=== PATIENT | female | born 1950 | race Caucasian/White ===

== ENCOUNTER → 2020-10-13 10:42 | Outpatient (CLI) | payer MEDICARE, SELFPAY ==
--- NOTE | ~2020-10-13 | XR_ITS ---
EXAMINATION: XR abdomen/kub 1V DATE: 10/13/2020 11:52 INDICATION: Constipation TECHNIQUE: A supine view of the abdomen on 2 radiographs was obtained. COMPARISON: None. FINDINGS: Moderate amount of stool scattered throughout the colon. No dilated loops of gas-filled bowel to sugg est obstruction. Mild lumbar levocurvature with moderate spondylosis. IMPRESSION: 1. Moderate amount of colonic stool consistent with given history of constipation. No dilated bowel t o suggest obstruction. Reviewed, dictated and finalized at location A. IMPRESSION: 1. Moderate amount of colonic stool consistent with given history of constipati on. No dilated bowel to suggest obstruction.
== END ==
PROVIDERS: Visit Provider Internal Medicine
DX: K59.00 Constipation, unspecified (principal)
CPT/HCPCS: 74018

== ENCOUNTER → 2021-04-15 12:49 | Outpatient (CLI) | payer MEDICARE, SELFPAY ==
--- NOTE | ~2021-04-15 | MM_ITS ---
EXAMINATION: MM screening [facility] BI w parviz HISTORY: Screening mammogram TECHNIQUE: Craniocaudal and mediolateral oblique 3-D tomosynthesis images were obtained and synthetic 2-D images were generated. CAD analysis was submitted and interpreted. COMPARISON: 12/09/2019, 09/30/2018, 06/12/2017, 04/04/2016 BREAST PARENCHYMAL COMPOSITION: The breasts are almost entirely fatty. FINDINGS: Focal asymmetry in the upper outer quadrant of the left breast is unchanged when compared t o prior examinations. Also noted is a stable mass in the middle third of the lower inner right breast . There is no evidence of suspicious mass, calcification, or architectural distortion to suggest kady gnancy in either breast. There has been no suspicious interval change. IMPRESSION: 1. No mammographic evidence of malignancy. 2. Recommend routine screening mammography in one year. BI-RADS Category 2: Benign finding(s). Reviewed, dictated and finalized at location A. D MILL SUPERVISOR
== END ==
DX: Z12.31 Encounter for screening mammogram for malignant neoplasm of breast (principal)
CPT/HCPCS: 77063; 77067

== ENCOUNTER → 2021-07-09 09:31 | Outpatient (CLI) | payer MEDICARE, SELFPAY ==
--- NOTE | ~2021-07-09 | XR_ITS ---
EXAMINATION: XR lumbar spine 2-3V DATE: 07/09/2021 10:28 INDICATION: Lumbar radiculopathy TECHNIQUE: Anteroposterior and lateral views of the lumbar spine, and cone-down lateral view of the l umbosacral junction were obtained. COMPARISON: None. FINDINGS: There are 2 mm of anterolisthesis of L3 on L4 and 3 mm of anterolisthesis of L4 on L5. The vertebral body heights are maintained. There is severe loss of intervertebral disc space height at L1 -2, L2-3, and L5-S1. There is no fracture. Moderate facet osteoarthritis is present in the lower lumb ar spine. Calcified atherosclerosis is noted. IMPRESSION: 1. Areas of severe lumbar spondylosis without acute findings. Reviewed, dictated and finalized at location B. OWER
== END ==
PROVIDERS: PCP Internal Medicine; Visit Provider Nurse Practitioner
DX: M47.27 Other spondylosis with radiculopathy, lumbosacral region (principal); I70.90 Unspecified atherosclerosis
CPT/HCPCS: 72100

== ENCOUNTER → 2021-07-19 12:38 | Outpatient (CLI) | payer MEDICARE, SELFPAY ==
--- NOTE | ~2021-07-19 | MR_ITS ---
EXAMINATION: MR lumbar spine wo con DATE: 07/19/2021 13:17 INDICATION: Low back pain. Lumbar radiculopathy. TECHNIQUE: Magnetic resonance imaging (MRI) of the lumbar spine was performed without intravenous con trast. Sequences included sagittal T2-weighted FSE, sagittal T2-weighted FS FSE, sagittal T1-weighted FSE, and axial T2-weighted FSE. COMPARISON: Lumbar spine radiographs 07/09/2021 FINDINGS: There is 9 degrees levocurvature of thoracolumbar spine. There is 3 mm anterolisthesis of L 2 on L3, L3 on L4, and L4 on L5. Vertebral body heights are normal. There is severely decreased disc height at L1-L2 and L5-S1 and mildly decreased disc height at L2-L3 and L3-L4. The distal spinal cord signal intensity is normal. The conus medullaris is at L1-L2. The following disc levels are specific ally discussed: L1-L2: The disc is bulging. There is mild right and moderate left facet joint osteoarthritis. There i s mild bilateral neural foraminal stenosis. There is mild central canal stenosis. L2-L3: The disc is bulging. There is severe bilateral facet joint osteoarthritis. There is mild bilat eral neural foraminal stenosis. There is no central canal stenosis. L3-L4: The disc does not extend beyond the endplate margin. There is severe bilateral facet joint ost eoarthritis. There is mild bilateral neural foraminal stenosis. There is no central canal stenosis. L4-L5: The disc does not extend beyond the endplate margin. There is severe bilateral facet joint ost eoarthritis. There is mild bilateral neural foraminal stenosis. There is no central canal stenosis. L5-S1: The disc is bulging and has an annular fissure. There is severe bilateral facet joint osteoart hritis. There is mild bilateral neural foraminal stenosis. There is mild central canal stenosis. IMPRESSION: 1. Severe lumbar spondylosis. Reviewed, dictated and finalized at location A.
== END ==
PROVIDERS: PCP Nurse Practitioner; Visit Provider Nurse Practitioner
DX: M47.26 Other spondylosis with radiculopathy, lumbar region (principal)
CPT/HCPCS: 72148

== ENCOUNTER 2022-01-21 10:29 | Observation (INO) | payer MEDICARE, SELFPAY ==
[2022-01-21] VITALS (14 sets, daily range): BP systolic 100–154; BP diastolic 48–102; PULSE 54–91; RESP 15–19; TEMP 36.3–37; O2SAT 92–99; BMI 32.7
--- NOTE | ~2022-01-21 | CT_ITS ---
EXAMINATION: CT abdomen pelvis w con DATE: 01/21/2022 12:44 INDICATION: Abdominal pain. TECHNIQUE: Computed tomography (CT) of the abdomen and pelvis was performed with 100 mL Omnipaque 350 intravenous contrast. Automated exposure control and iterative reconstruction technique were employe d. The dose-length product was 879.01 mGy-cm. COMPARISON: None. FINDINGS: The visualized portions of the lung bases demonstrate mild atelectasis. No pleural effusion . The heart size is normal. No pericardial effusion. The liver, gallbladder, spleen, pancreas, adrena l glands, and left kidney are normal. There is a 15 mm cyst in right kidney. The appendix is dilated to 10 mm with surrounding fat stranding, consistent with appendicitis. There are no pathologically en larged lymph nodes. There is no free intraperitoneal fluid. There is severe lumbar spondylosis. IMPRESSION: 1. Acute appendicitis. Reviewed, dictated and finalized at location A. IMPRESSION: 1. Acute appendicitis.
[2022-01-21 11:11] LABS: Basophils Absolute Auto 0.1 K/mm3 (0.0-0.1); Basophils Percent Auto 0.7 % (0.2-1.2); Eosinophils Absolute Auto 0.2 K/mm3 (0-0.3); Eosinophils Percent Auto 2.7 % (0-4.4); Hematocrit 45.4 % (37.0-47.0); Immature Granulocyte Absolute 0.02 K/mm3 (0.00-0.031); Immature Granulocyte Percent A 0.2 % (0-0.5); Lymphocytes Absolute Auto 1.84 K/mm3 (0.9-3.2); Lymphocytes Percent Auto 22.8 % (18.3-44.2); Mean Corpuscular Hemoglobin 31.4 pg (26-34); Mean Platelet Volume 11.7 fl (7.4-10.4); Monocytes Absolute Auto 0.8 K/mm3 (0.1-0.6); Neutrophils Absolute Auto 5.1 K/mm3 (1.3-6.7); Neutrophils Percent Auto 63.6 % (45.5-73.1); Platelet Count Result 226 k/mm3 (150-375); Red Blood Count 4.78 M/mm3 (4.2-5.4); Red Cell Distribution Width 12.6 % (11.5-14.5); White Blood Count 8.1 K/mm3 (4.5-10.0)
[2022-01-21 11:15] LABS: Appearance Urine Clear (Clear); Bilirubin Urine Negative (Negative); Color Urine Yellow (Yellow); Glucose Urine UA Negative (Negative); Ketones Urine Negative (Negative); Leukocyte Esterase Ur 1+ LEU/UL (Negative); Nitrate Urine Negative (Negative); Protein Urine Negative (Negative); Urobilinogen Urine 0.2 mg/dL (<2.0)
[2022-01-21 11:19] LABS: Add Urine Microscopic? YES; Blood Urine Trace-Intact (Negative)
[2022-01-21 11:20] LABS: Mucus Urine Rare /lpf; Squamous Epithelial Cell Urine Few /hpf (Few)
--- NOTE | 2022-01-21 11:29 | ED.ABDPAIN ---
HPI - Abdominal Pain General Chief Complaint: Abdominal Pain Stated Complaint: ABD PAIN X 3D Time Seen by Provider: 01/21/22 11:06 Source: patient Mode of arrival: ambulatory Limitations: no limitations History of Present Illness HPI narrative: 71 years old white female drove herself to the emergency room complaining of mid abdominal pain, across. This started 4 days ago, is getting better. She denies any fever, chills, nausea, vomiting, diarrhea, constipation, chest pain, shortness of breath or back pain or radiation of pain. Patient going to a trip and would like to know what caused her abdominal pain. Currently slight discomfort. History of hypertension, hyperlipidemia, does not smoke or drink or uses drugs. Related Data Home Medications Medication Instructions Recorded Confirmed aspirin 81 mg tablet,delayed 81 mg PO DAILY 03/10/19 08/15/21 release (Adult Low Dose Aspirin) estradiol 0.5 mg tablet 0.5 mg PO DAILY 03/10/19 08/15/21 solifenacin 10 mg tablet (Vesicare) 10 mg PO DAILY 03/10/19 08/15/21 melatonin 5 mg tablet mg PO 02/16/20 08/15/21 mirabegron 25 mg tablet,extended 25 mg PO DAILY 02/16/20 08/15/21 release 24 hr (Myrbetriq) psyllium husk 0.4 gram capsule 0.4 g PO DAILY 02/16/20 08/15/21 (Metamucil) sennosides 8.6 mg tablet (Senokot) 8.6 mg PO BID 02/16/20 08/15/21 cholecalciferol (vitamin D3) 125 125 mcg PO DAILY 07/16/20 08/15/21 mcg (5,000 unit) capsule magnesium 200 mg tablet 400 mg PO DAILY 01/30/21 08/15/21 Allergies Allergy/AdvReac Type Severity Reaction Status Date / Time No Known Allergies Allergy Verified 08/15/21 10:27 Review of Systems Review of Systems: All systems reviewed & are unremarkable except as noted in HPI and below PMFSH Past Medical History Medical History Constipation Obese Family History Family History Father Diabetes mellitus Social History Social History Smoking status: Never smoker Second hand tobacco smoke exposure: Yes Alcohol intake: current Drinks per week: 4 Alcohol use details: wine Substance use: never Substance use type: does not use Exam Narrative: General appearance: Well-developed, well-nourished Skin: Normal color Head: Normocephalic, nontraumatic Eyes: Clear conjunctiva ENT: Oropharynx normal, ears normal, nose normal Neck: Supple, nontender Chest and respiratory: Airway patent, no respiratory distress, no accessory muscle use Heart: Regular rate/rhythm Abdomen: Soft, nontender, no organomegaly, quiet bowel sounds Vascular: Normal peripheral pulses, normal capillary refill. Musculoskeletal: Normal range of motion, nontender back Neurologic: Alert and oriented ?3, [employer] is normal as tested, no gross motor deficit Course Vital Signs Vital signs: Vital Signs Temperature 37.0 C 01/21/22 10:45 Pulse Rate 62 01/21/22 10:45 Respiratory Rate 16 01/21/22 10:45 Blood Pressure 140/102 H 01/21/22 10:45 Pulse Oximetry 96 01/21/22 10:45 Temperature 37.0 C 01/21/22 10:45 Pulse Rate 62 01/21/22 10:45 Respiratory Rate 16 01/21/22 10:45 Blood Pressure 140/102 H 01/21/22 10:45 Pulse Oximetry 96 01/21/22 10:45 MDM - Abdominal Pain Differential Diagnosis Differential diagnosis: Likely abdominal pain, constipation and diverticulitis Lab Data Result diagrams: 01/21/22 10:59 01/21/22 10:59 Labs: Lab Results 01/21/22 01/21/22 01/21/22 Range/Units 10:59 10:59 10:59 WBC 8.1 (4.5-10.0) K/mm3 RBC 4.78 (4.2-5.4) M/mm3
[2022-01-21 11:52] LABS: Alanine Aminotransferase 46 U/L (6-35); Alkaline Phosphatase 52 U/L (38-126); Anion Gap 12 mmol/L (8-16); Aspartate Amino Transferase 41 U/L (14-36); Bilirubin,Total 0.7 mg/dL (0.2-1.3); Blood Urea Nitrogen 14 mg/dL (7-17); Calcium 8.8 mg/dL (8.4-10.2); Carbon Dioxide 26 mmol/L (22-30); Chloride 97 mmol/L (98-107); Estimated CRCL calculation 65 ml/min; Estimated Glomerular Filt Rate > 60; Glucose 128 mg/dL (65-110); Lipase 57 U/L (23-300); Potassium 3.3 mmol/L (3.4-5.0); Sodium 135 mmol/L (137-145)
--- NOTE | 2022-01-21 12:33 | PC.NURSE ---
Patient to radiology
[2022-01-21] MEDS: SODIUM CHLORIDE 0.9% IV 1,000 ML 999 ML IV CONT (12:43)
--- NOTE | 2022-01-21 14:19 | PC.NURSE ---
Per EDP Arnulfo, hold PO potassium at this time. Patient currently NPO
--- NOTE | 2022-01-21 14:36 | PM.IMHP ---
H&P: HPI History of Present Illness Date/Time: 01/21/22 14:36 Chief Complaint: RUQ abdominal pain Narrative: This is a 71-year-old women with a history of overactive bladder, hypertension, and hyperlipidemia, who presented to the ER with complaints of abdominal pain for 3 days. She reports a sudden onset of right upper quadrant abdominal pain around 7:00 p.m. Thursday night. She had associated nausea and chills, but no vomiting or fever. She had eaten a large meal earlier that day and thought she was constipated. She was able to sleep that night and woke up in the morning with the same pain present. She felt like it was a little better. The pain was in the right upper quadrant and radiated across her upper abdomen. She had a large BM that morning with no relief in her pain. Throughout the day, her pain seemed to improve even into the following day. She decided to come into the ER today for evaluation because she was unable to get into her primary care office. Labs showed a white blood cell count of 8000 and potassium 3.3. She takes 40 mg once of KCl daily due to issues with hypokalemia, and has not taken her medications yet this morning. CT scan of the abdomen and pelvis showed acute appendicitis, with no evidence of perforation. The patient is now seen in the ER. Our service has been contacted by the ED physician for surgical evaluation of acute appendicitis. Review of Systems Review of Systems: All systems reviewed & are unremarkable except as noted in HPI and below Constitutional: Constitutional: Reports as per HPI, Reports chills, Denies fatigue, Denies fever(s) and Denies poor appetite Eyes: Eyes: Reports no additional eye complaints ENT: Reports system reviewed and no additional complaints, except as documented and Denies dizziness Cardiovascular: Cardiovascular: Reports no additional cardiovascular complaints, Denies chest pain and Denies leg edema Respiratory: Respiratory: Reports no additional respiratory complaints, Denies cough and Denies dyspnea Gastrointestinal: Gastrointestinal: Reports as per HPI, Reports no additional gastrointestinal complaints, Reports abdominal pain, Denies melena, Denies hematochezia, Denies change in bowel habits, Denies change in stool character, Denies constipation, Reports nausea and Denies vomiting Genitourinary: Genitourinary: Reports no additional female genitourinary complaints, Reports nocturia (Chronic due to her overactive bladder) and Denies dysuria Musculoskeletal: Musculoskeletal: Reports no additional musculoskeletal complaints Integumentary/Breasts: Skin/Breast: Reports system reviewed and no additional complaints, except as docu Neurologic: Reports system reviewed and no additional complaints, except as documented, Denies dizziness, Denies focal weakness, Denies numbness and Denies tingling PMFSH Past Medical History Medical History Constipation Depression Essential hypertension History of gastric ulcer 2013 -found on EGD. Currently on PPI. Hyperlipidemia Iron deficiency Obese Overactive bladder Vitamin D deficiency, unspecified Surgical History Surgical History History of bladder surgery History of colonoscopy Most recent colonoscopy in 2018 with findings of internal hemorrhoids. History of esophagogastroduodenoscopy (EGD) History of hysterectomy Family History Family History Father Diabetes mellitus Social History Social History Smoking status: Never smoker Second hand tobacco smoke exposure: Yes Alcohol intake: current Drinks per week: 4 Alcohol use details: wine Substance use: never Substance use type: does not use Meds Home Medications and Allergies Home Medications Medication Instructions Cam
[2022-01-21 14:49] LABS: SARS-CoV-2 RNA PCR Negative
--- NOTE | 2022-01-21 15:22 | WPDANESEPPF ---
Anes - Initial Pre Proc Eval Procedure: Operation Date: 01/21/22 17:30 Proposed Procedures p Laparoscopic Appendectomy, Possible Open - Woody Garcia MD <Estevan Siddiqui MD - Last Filed: 01/22/22 15:53> Date/Time: 01/21/22 15:22 <Estevan Siddiqui MD - Last Filed: 01/22/22 15:53> Pre Op Diagnosis: acute appendicites <Estevan Siddiqui MD - Last Filed: 01/22/22 15:53> Patient Data Age: 71 Gender: F Height: 1.63 m Weight: 85 kg <Estevan Siddiqui MD - Last Filed: 01/22/22 15:53> Last Vital Signs Temp 36.5 C 01/21/22 13:41 Pulse 67 01/21/22 14:58 Resp 16 01/21/22 14:58 BP 137/65 01/21/22 14:58 Pulse Ox 99 01/21/22 14:58 <Estevan Siddiqui MD - Last Filed: 01/22/22 15:53> Allergies Allergy/AdvReac Type Severity Reaction Status Date / Time No Known Allergies Allergy Verified 08/15/21 10:27 <Estevan Siddiqui MD - Last Filed: 01/22/22 15:53> Home Medications Medication Instructions Recorded Confirmed Type aspirin 81 mg tablet,delayed 81 mg PO DAILY 03/10/19 01/21/22 History release (Adult Low Dose Aspirin) estradiol 0.5 mg tablet 0.5 mg PO DAILY 03/10/19 01/21/22 History solifenacin 10 mg tablet (Vesicare) 10 mg PO DAILY 03/10/19 01/21/22 History melatonin 5 mg tablet 5 mg PO HS 02/16/20 01/21/22 History mirabegron 25 mg tablet,extended 25 mg PO DAILY 02/16/20 01/21/22 History release 24 hr (Myrbetriq) psyllium husk 0.4 gram capsule 0.4 g PO DAILY 02/16/20 01/21/22 History (Metamucil) sennosides 8.6 mg tablet (Senokot) 8.6 mg PO BID 02/16/20 01/21/22 History cholecalciferol (vitamin D3) 125 125 mcg PO DAILY 07/16/20 01/21/22 History mcg (5,000 unit) capsule magnesium 200 mg tablet 400 mg PO DAILY 01/30/21 01/21/22 History pantoprazole 40 mg tablet,delayed 40 mg PO QAM #90 tabs 07/29/21 01/21/22 Rx release escitalopram oxalate 10 mg tablet 10 mg PO DAILY #90 tabs 08/19/21 01/21/22 Rx (Lexapro) potassium chloride 10 mEq 10 meq PO QID #360 tabs 11/14/21 01/21/22 Rx tablet,extended release atorvastatin 10 mg tablet 10 mg PO DAILY #90 tabs 11/15/21 01/21/22 Rx atenolol 50 mg-chlorthalidone 25 1 tablet PO DAILY 01/21/22 01/21/22 History mg tablet docusate sodium 50 mg capsule 50 mg PO DAILY 01/21/22 01/21/22 History (Stool Softener) lisinopril 5 mg tablet 5 mg PO DAILY 01/21/22 01/21/22 History hydrocodone 5 mg-acetaminophen 325 1 tablet PO Q6H PRN pain #10 tabs 01/22/22 Rx mg tablet <Estevan Siddiqui MD - Last Filed: 01/22/22 15:53> Laboratory Tests 01/21/22 01/21/22 01/21/22 10:59 10:59 11:34 WBC 8.1 K/mm3 K/mm3 (4.5-10.0) RBC 4.78 M/mm3 M/mm3 (4.2-5.4) Hgb 15.0 g/dL g/dL (12.0-15.0) Hct 45.4 % % (37.0-47.0) MCV 95.0 fl fl (80-100) MCH 31.4 pg pg (26-34) MCHC 33.0 g/dl g/dl (32-36) RDW 12.6 % % (11.5-14.5) Plt Count 226 k/mm3 k/mm3 (150-375) MPV 11.7 fl H fl (7.4-10.4) Immature Gran % (Auto) 0.2 % % (0-0.5) Neut % (Auto) 63.6 % % (45.5-73.1) Lymph % (Auto) 22.8 % % (18.3-44.2) Wirt % (Auto) 10.0 % H % (2.6-8.5) Eos % (Auto) 2.7 % % (0-4.4) Baso % (Auto) 0.7 % % (0.2-1.2) Lymph # (Auto) 1.84 K/mm3 K/mm3 (0.9-3.2) Wirt # (Auto) 0.8 K/mm3 H K/mm3 (0.1-0.6) Eos # (Auto) 0.2 K/mm3 K/mm3 (0-0.3) Baso # (Auto) 0.1 K/mm3 K/mm3 (0.0-0.1) Abs Immat Gran (auto) 0.02 K/mm3 K/mm3 (0.00-0.031) Absolute Neuts (auto) 5.1 K/mm3 K/mm3 (1.3-6.7) Absolute Nucleated RBC 0.0 K/mm3 K/mm3 (0.0-0.012) Nucleated RBC % 0.0 % % (0.0-0.2) Sodium 135 mmol/L L mmol/L (137-145) Potassium 3.3 mmol/L L mmol/L (3.4-5.0) Chloride 97 mmol/L L mmol/L (98-107) Carbon Dioxide 26 mmol/L mmol/L (22-30) Ani
[2022-01-21] MEDS: KCL 20 MEQ/SW 100 ML 100 ML 50 MEQ IVPB (15:27)
[2022-01-21] MEDS: SODIUM CHLORIDE 0.9% IV 1,000 ML 250 ML (16:18)
--- NOTE | 2022-01-21 16:18 | PC.NURSE ---
Patient reports pain at IV site with potassium. Potassium infusion slowed, IV fluids hung with potassium per ROBY Arredondo.
--- NOTE | 2022-01-21 17:10 | SUR.PREOP ---
1710 - Dr. Mace aware of Patient not taking her home dose of atenolol today. no orders received. Dr. Mace aware of patient being on steriod medication 2 weeks age. no orders received.
--- NOTE | 2022-01-21 17:27 | WPDHPUPDATE1 ---
History and Physical Update Update Date/Time: 01/21/22 17:27 History and Physical has been reviewed, including an updated exam of the patient. There are NO changes in the patient's condition. Patient did tell me that she had recently been on as steroid taper dose that she finished 2 weeks ago. This was for pain in her lower back extending into the right leg. Risks, benefits, and alternatives have been discussed and questions answered. Patient agrees to proceed with procedure.
--- NOTE | 2022-01-21 17:49 | SUR.PREOP ---
ABDOMEN CLEANED WITH CHLORHEXIDINE WIPES X 2. SCD WRAPS APPLIED TO BOTH LEGS.
[2022-01-21] MEDS: CHLORHEXIDINE GLUCONATE 4% SOL 120 ML BTL 1 APPLIC TOPICAL (17:50)
[2022-01-21] MEDS: LACTATED RINGERS 1,000 ML 30 ML IV CONT ×2 (18:33→20:27)
--- NOTE | 2022-01-21 18:34 | SUR.PREOP ---
PATIENT TRANSPORTED TO THE OR.
[2022-01-21] MEDS: BUPIVACAINE/EPINEPHRINE 0.25% 50 ML VIAL 30 ML INFILTRATE (20:10)
[2022-01-21] MEDS: ONDANSETRON INJ 4 MG/2 ML VIAL IV PUSH (20:58)
--- NOTE | 2022-01-21 21:05 | W.PM.PROC2 ---
Procedure Note - Detailed Date of Procedure 01/21/22 Pre-op Diagnosis acute uncomplicated appendicitis Post-op Diagnosis Same Procedure Performed laparoscopic appendectomy Surgeon Woody Garcia MD Aircraft P[employer] Repairer Barbara LIM. OR 1st assist Anesthesia General Indications See history and physical Patient has signs and symptoms of appendicitis and a CT scan showing a dilated appendix with surrounding fat stranding. To my reading CT also suggested possible small appendicoliths. Findings Patient had a significantly dilated distal 2/3 of her appendix with no signs of perforation. Description of Procedure The patient was seen again in the Holding Room. The risks, benefits, complications, treatment options, and expected outcomes were discussed with the patient and/or family. The possibilities of reaction to medication, pulmonary aspiration, perforation of viscus, bleeding, recurrent infection, finding a normal appendix, the need for additional procedures, failure to diagnose a condition, and creating a complication requiring transfusion or operation were discussed. There was concurrence with the proposed plan and informed consent was obtained. The site of surgery was properly noted/marked. The patient was taken to Operating Room, and a time out was preformed which identified this as the proper patient, and the procedure verified as laparoscopic appendectomy, possible open. The patient was placed in the supine position and general anesthesia was induced, along with placement of an orogastric tube, SCD hose, and a Lamb catheter. The abdomen was prepped and draped in a sterile fashion. Because the patient had had previous surgeries the Cormier cannula technique was utilized. To do this I made a incision in the umbilical area and carried this down to the midline fascia. Under direct vision the midline fascia was incised and the peritoneum entered under direct vision after placing 2 sutures of 0 Vicryl in the fascia on either side of midline. The Cormier cannula was then slid into place into the peritoneum under direct vision. The pneumoperitoneum was then established to steady pressure of 14 mm Hg. A 5 mm laparoscopic port was placed through a transverse suprapubic incision (probably a good 5-6 cm above the pubic bone. An additional 5 mm cannula was then placed in the left upper quadrant at the level skilled nursing between the left costal margin and the umbilicus under direct vision. A careful evaluation of the entire abdomen was carried out. The patient was placed in Trendelenburg and left lateral decubitus position. The small intestines were retracted in the cephalad and left lateral direction away from the pelvis and right lower quadrant. The patient was found to have an enlarged and inflamed appendix that was extending just into the upper right side of the pelvis . It was best seen by just rotating the most inferior and the cecum medially. There was no evidence of perforation. The appendix was carefully dissected. Once it was free a 45 mm ethicon endogastroentestinal stapler with a 3.5 mm bowel wall load was placed across the base of the appendix after I dissected a small window in the mesoappendix right at the junction of the appendix to the cecum. This was fired and hemostasis was checked along the staple line and appeared to be adequate. Thus the appendix was then divided at its base, and this allowed me to rotate the appendix medially such that the stapler could then more easily be placed across the mesoappendix. A white load for the blood vessels was placed on the same 45 mm stapler with a 2.5 mm vascular load. The mesoappendix was very thickened so I used Bovie cautery on the L hook to score the peritoneum on either side of it. Then the stapler fit across all except for about 0.5 cm near the tip. The stapler was again fired and released. I then used scissors to attached the Bovie cautery to transect the remaining mesoappendix. There was a little bit of bleedi
[2022-01-21 21:25] LABS: Hemoglobin 14.5 g/dL (12.0-15.0)
[2022-01-21] MEDS: diphenhydrAMINE HCl INJ 50 MG/ML VIAL 12.5 MG IV PUSH (21:29)
[2022-01-21] MEDS: fentaNYL CITRATE INJ (*CRX) 100 MCG/2 ML VIAL 25 MCG IV PUSH (21:29)
[2022-01-21 21:39] LABS: Anion Gap 13 mmol/L (8-16); Blood Urea Nitrogen 12 mg/dL (7-17); Calcium 8.3 mg/dL (8.4-10.2); Carbon Dioxide 21 mmol/L (22-30); Chloride 101 mmol/L (98-107); Estimated CRCL calculation 75 ml/min; Estimated Glomerular Filt Rate > 60; Glucose 140 mg/dL (65-110); Potassium 3.4 mmol/L (3.4-5.0); Sodium 135 mmol/L (137-145)
[2022-01-21] MEDS: MELATONIN 5 MG TABLET PO (23:13)
[2022-01-22 04:11] VITALS: BP 112/78; PULSE 64; RESP 16; TEMP 36.4; O2SAT 94
[2022-01-22 05:55] LABS: Hematocrit 39.9 % (37.0-47.0); Hemoglobin 13.2 g/dL (12.0-15.0); Mean Corpuscular HGB Conc 33.1 g/dl (32-36); Mean Corpuscular Hemoglobin 31.5 pg (26-34); Mean Corpuscular Volume 95.2 fl (80-100); Mean Platelet Volume 11.5 fl (7.4-10.4); Platelet Count Result 172 k/mm3 (150-375); Red Blood Count 4.19 M/mm3 (4.2-5.4); Red Cell Distribution Width 12.3 % (11.5-14.5); White Blood Count 7.7 K/mm3 (4.5-10.0)
[2022-01-22 06:10] LABS: Anion Gap 11 mmol/L (8-16); Blood Urea Nitrogen 9 mg/dL (7-17); Calcium 8.2 mg/dL (8.4-10.2); Carbon Dioxide 26 mmol/L (22-30); Chloride 102 mmol/L (98-107); Estimated CRCL calculation 66 ml/min; Estimated Glomerular Filt Rate > 60; Glucose 139 mg/dL (65-110); Potassium 3.4 mmol/L (3.4-5.0); Sodium 139 mmol/L (137-145)
[2022-01-22] MEDS: POTASSIUM CHLORIDE 10 MEQ TABLET.ER PO (09:37)
[2022-01-22] MEDS: ASPIRIN 81 MG ENTERIC TABLET PO (09:38)
[2022-01-22] MEDS: ENOXAPARIN 40 MG/0.4 ML SYRINGE SUB-Q (09:39)
[2022-01-22] MEDS: CHLORTHALIDONE 25 MG TABLET PO (09:39)
[2022-01-22] MEDS: DOCUSATE SODIUM LIQ 100 MG/10 ML UDC 50 MG PO (09:39)
[2022-01-22] MEDS: estradioL 0.5 MG TABLET PO (09:40)
[2022-01-22] MEDS: MIRABEGRON 25 MG ER TABLET PO (09:40)
[2022-01-22] MEDS: PANTOPRAZOLE 40 MG TABLET PO (09:40)
[2022-01-22] MEDS: lisinopriL 5 MG TABLET PO (09:40)
[2022-01-22 09:41] VITALS: PULSE 56
[2022-01-22] MEDS: SOLIFENACIN 5 MG TABLET 10 MG PO (09:41)
[2022-01-22] MEDS: atenoloL 50 MG TABLET PO (09:41)
[2022-01-22] MEDS: SENNOSIDES 8.6 MG TABLET PO (09:41)
[2022-01-22] MEDS: SODIUM CHLORIDE 0.9% IV 1,000 ML 100 ML IV CONT (09:55)
[2022-01-22 11:27] VITALS: PULSE 55; RESP 16; TEMP 36.1; O2SAT 99
[2022-01-22] MEDS: ACETAMINOPHEN 500 MG TABLET 1000 MG PO (13:07)
--- NOTE | 2022-01-22 15:20 | PM.DS ---
DS: Admitting Diagnosis Discharge Date 01/22/2022 Admitting Diagnosis acute uncomplicated appendicitis DS: Discharge Diagnosis Discharge Diagnosis (1) Acute appendicitis: Code(s): K35.80 - Unspecified acute appendicitis Status: Acute Assessment and Plan: This was the main reason for her admission. She was seen by my nurse practitioner Leticia in the ED after the CT scan that showed significant inflammatory change around her appendix without perforation. She was given the option of antibiotic treatment with observation versus appendectomy surgically. She has decided that she would like to proceed with surgical intervention. This was done in an expeditious manner and the patient was able to have a laparoscopic appendectomy. This seemed to go well and the patient was kept overnight in view of her other comorbidities and the fact that she did not have anybody to take her home along with question of possible urinary tract infection. ( 10-15 lb sees per high-power field on ER UA). (Also her surgery did not get over until 9:00 p.m. or so. ) (2) Hypokalemia: Code(s): E87.6 - Hypokalemia Status: Acute Assessment and Plan: Patient was mildly hypokalemic with a potassium of 3.2 in the ED. She received 1 rider prior to surgery while she was waiting for a time to proceed to surgery. Follow up after surgery showed a potassium of 3.4 both the evening of and the morning following her surgery. She is already on potassium and will resume this at home. Follow-up with PCP is recommended. (3) Essential hypertension: Code(s): I10 - Essential (primary) hypertension Status: Chronic Assessment and Plan: patient was continued on her normal medications on the day following surgery as she continued to recover. Blood pressure readings were within reasonable level. She will resume normal medications at home and resume usual home monitoring with office follow-up. (4) Overactive bladder: Code(s): N32.81 - Overactive bladder Status: Chronic Assessment and Plan: Patient had a voiding trial upon removal of the Lamb catheter on the day following surgery. Bladder scan after a void revealed minimal residual of 4 cc. (5) Obese: Code(s): E66.9 - Obesity, unspecified Status: Acute Assessment and Plan: Encouraged patient to adjust to a healthy eating habits and try to lose some weight. Follow-up with PCP with further discussions regarding how this may help many of her chronic illnesses. DS: Summary Hospital Course Reason for hospitalization: Acute uncomplicated appendicitis. Hospital Course: abdominal pain which was discovered to be secondary to acute uncomplicated appendicitis was main reason for her admission. She was seen by my nurse practitioner Leticia in the ED after the CT scan that showed significant inflammatory change around her appendix without perforation. She was given the option of antibiotic treatment with observation versus appendectomy surgically. She has decided that she would like to proceed with surgical intervention. This was done in an expeditious manner and the patient was able to have a laparoscopic appendectomy. This seemed to go well and the patient was kept overnight in view of her other comorbidities and the fact that she did not have anybody to take her home along with question of possible urinary tract infection. Status at Discharge Cognitive/behavioral status at discharge: recovered and stable Functional status at discharge: independent ambulation Overall status at discharge: patient is not back to baseline Time Spent with Patient Time attestation: Total time spent providing and/or coordinating discharge services: 30 min Time spent: Less than 30 minutes Exam Const: General: cooperative, comfortable, alert and awake Orientation/consciousness: patient oriented x3 HENMT: Head: normal to inspection Mouth: Yes moist muc
== END 2022-01-22 16:15 | disposition home or self-care (01) ==
LOC: ANHED 16:01 → ANH3MEDSUR 16:08 → ANH3MED 16:49
PROVIDERS: Admitting Provider Surgery; Emergency Provider Emergency Medicine; PCP Nurse Practitioner; Visit Provider Surgery
PROC: 0DTJ4ZZ Resection of Appendix, Percutaneous Endoscopic Approach (ICD-10-PCS; CPT 44970; principal; 2022-01-21 17:30)
DX: K35.80 Unspecified acute appendicitis (principal); E87.6 Hypokalemia; I10 Essential (primary) hypertension; N32.81 Overactive bladder; E66.9 Obesity, unspecified; Z68.32 Body mass index [BMI] 32.0-32.9, adult; E78.5 Hyperlipidemia, unspecified; F32.A Depression, unspecified; E87.5 Hyperkalemia; E55.9 Vitamin D deficiency, unspecified; E61.1 Iron deficiency; Z77.22 Contact with and (suspected) exposure to environmental tobacco smoke (acute) (chronic); Z72.89 Other problems related to lifestyle; Z20.822 Contact with and (suspected) exposure to COVID-19; Z87.11 Personal history of peptic ulcer disease; Z79.82 Long term (current) use of aspirin; Z79.890 Hormone replacement therapy; Z79.899 Other long term (current) drug therapy
CPT/HCPCS: 44970; 36415; 74177; 80048; 80053; 81001; 83690; 85014; 85018; 85025; 85027; 87086; 88304; 96361; 96365; 96366; 96367; 99285; A9270; C9803; G0378; J0330; J1100; J1200; J1650; J2405; J2543; J2704; J3010; J3480; J7030; J7120; Q9967; U0003; U0005

== ENCOUNTER 2022-07-13 10:46 | Emergency (ER) | payer MEDICARE, SELFPAY ==
--- NOTE | ~2022-07-13 | XR_ITS ---
EXAMINATION: XR hip RT 2V w AP pelvis DATE: 07/13/2022 12:13 INDICATION: Right buttock pain post fall TECHNIQUE: Anteroposterior view of the pelvis and anteroposterior and frog-leg lateral views of the r ight hip were obtained. COMPARISON: CT abdomen and pelvis dated 01/21/2022 FINDINGS: Bone alignment is normal. No fracture. Mild bilateral hip and sacroiliac osteoarthritis. Severe spond ylosis at L5-S1 and severe bilateral facet osteoarthritis at L4-L5. Soft tissues are unremarkable. IMPRESSION: Degenerative skeletal changes, severe in the lower lumbar spine and mild in the pelvis. No acute osse ous abnormality. Reviewed, dictated and finalized at location A. IMPRESSION: Degenerative skeletal changes, severe in the lower lumbar spine and mild in the pelvis. No acute osseous abnormality.
--- NOTE | ~2022-07-13 | CT_ITS ---
EXAMINATION: CT brain wo con, CT facial bones wo con DATE: 07/13/2022 12:10 INDICATION: Fall with head and facial injury TECHNIQUE: 1. Computed tomography (CT) of the head was performed without intravenous contrast. Sagittal and nhi nal reconstructions were obtained. The mA was adjusted according to patient size. Iterative reconstru ction technique was employed. The dose-length product was 605.33 mGy-cm. 2. CT of the facial bones and maxillofacial region was performed without intravenous contrast. Sagitt al and coronal reconstructions were obtained. Automated exposure control and iterative reconstruction technique were employed. The dose-length product was 288.72 mGy-cm. COMPARISON: None. FINDINGS: Head CT: No calvarial fracture. No acute intracranial hemorrhage, acute infarction or abnormal extra axial flu id collection. There is mild scattered white matter hypoattenuation consistent with chronic small ves sj ischemic disease. Symmetric prominence of the sulci consistent with mild age-appropriate diffuse cerebral volume loss. Ventricles are normal and symmetric. No mass/mass effect. Maxillofacial CT: No maxillofacial fractures. Specifically the nasal bones, the ramirez of the orbits and paranasal sinus es, the zygomatic arches, mandible and pterygoid plates are all intact. Orbits are normal. Mild mucos al thickening at the inferior right maxillary sinus. Remainder of the paranasal sinuses are clear. Ma stoid air cells and middle ear cavities are clear. There is metallic streak artifact from multiple de ntal restorations which partially obscures approximately 2.0 x 1.3 cm lipoma overlying the right mass eter muscle. Maxillofacial soft tissues are otherwise unremarkable. Small amount of atherosclerotic c alcific a cyst at the bilateral carotid bulbs. One-2 mm anterolisthesis C3 on C4, 3 mm anterolisthesi s C4 on C5. Severe spondylosis in the lower cervical spine. IMPRESSION: 1. No calvarial or maxillofacial fractures. 2. Age-related changes including mild diffuse volume loss and mild scattered white matter hypoattenua tion. No acute intracranial process. Reviewed, dictated and finalized at location A. IMPRESSION: 1. No calvarial or maxillofacial fractures. 2. Age-related changes including mild diffuse volume loss and mild scattered wh ite matter hypoattenuation. No acute intracranial process.
[2022-07-13 11:06] VITALS: BP 130/59; PULSE 60; RESP 16; TEMP 36.4; O2SAT 98
--- NOTE | 2022-07-13 12:11 | ED.FALL ---
HPI - Fall General Chief Complaint: Fall Stated Complaint: fall-head injury Time Seen by Provider: 07/13/22 11:19 Source: patient Mode of arrival: ambulatory Limitations: no limitations History of Present Illness HPI Narrative: 72-year-old female presents today for concern Of Fall Yesterday. Patient States She Was Walking Out Of the Restaurant to Her Car When She Slipped and Fell. Patient Not Sure Exactly How She Landed but She Does Have Bruising to the Right to the Right Buttock. Patient Has Been Ambulatory at Home. Patient Does Endorse pain to the right frontal lobe. Patient alert oriented x3 steady. She is currently only on a baby aspirin with relation to anticoagulant. Related Data Home Medications Medication Instructions Recorded Confirmed aspirin 81 mg tablet,delayed 81 mg PO DAILY 03/10/19 02/20/22 release (Adult Low Dose Aspirin) estradiol 0.5 mg tablet 0.5 mg PO DAILY 03/10/19 02/20/22 solifenacin 10 mg tablet (Vesicare) 10 mg PO DAILY 03/10/19 02/20/22 melatonin 5 mg tablet 5 mg PO HS 02/16/20 02/20/22 mirabegron 25 mg tablet,extended 25 mg PO DAILY 02/16/20 02/20/22 release 24 hr (Myrbetriq) psyllium husk 0.4 gram capsule 0.4 g PO DAILY 02/16/20 02/20/22 (Metamucil) sennosides 8.6 mg tablet (Senokot) 8.6 mg PO BID 02/16/20 02/20/22 cholecalciferol (vitamin D3) 125 125 mcg PO DAILY 07/16/20 02/20/22 mcg (5,000 unit) capsule magnesium 200 mg tablet 400 mg PO DAILY 01/30/21 02/20/22 docusate sodium 50 mg capsule 50 mg PO DAILY 01/21/22 02/20/22 (Stool Softener) Allergies Allergy/AdvReac Type Severity Reaction Status Date / Time No Known Allergies Allergy Verified 07/13/22 11:05 Review of Systems Review of Systems: CONSTITUTIONAL: Denies fever, chills, or sweats. EYES: Denies visual changes, redness, or discharge. ENT: Bruising to right eye. Tenderness to right forehead. Denies rhinorrhea, congestion, sore throat, or otalgia. CARDIOVASCULAR: Denies chest pain, palpitations, or edema. RESPIRATORY: Denies cough or dyspnea. GASTROINTESTINAL: Denies abdominal pain, nausea, vomiting, or diarrhea. GENITOURINARY: Denies dysuria or hematuria. SKIN: Denies rash or itching. MUSCULOSKELETAL: Right buttock/hip pain. Denies back pain or myalgia. NEUROLOGIC: Denies headache, numbness, dizziness, or weakness. PSYCHIATRIC: Denies anxiety or depression. [facility] Past Medical History Medical History Constipation Depression Essential hypertension History of gastric ulcer 2014 -found on EGD. Currently on PPI. Hyperlipidemia Iron deficiency Obese Overactive bladder Vitamin D deficiency, unspecified Surgical History Surgical History History of bladder surgery History of colonoscopy Most recent colonoscopy in 2018 with findings of internal hemorrhoids. History of esophagogastroduodenoscopy (EGD) History of hysterectomy Family History Family History Father Diabetes mellitus Social History Social History Smoking status: Never smoker Second hand tobacco smoke exposure: Yes Alcohol intake: current Drinks per week: 4 Alcohol use details: wine Substance use: never Substance use type: does not use Exam Narrative: GENERAL: Well-appearing, well-nourished, and in no acute distress. HEAD: Normocephalic, left as the right eye without swelling. Tenderness on palpation EYES: PERRLA and EOMI. ENT: Nares clear, no rhinorrhea or epistaxis. Mucous membranes moist. Oropharynx without tonsillar hypertrophy exudate or other lesions. Bilateral TMs pearly sierra nonbulging NECK: Supple. No adenopathy or masses. No carotid bruits or JVD CHEST: Clear to auscultation. No respiratory distress. No wheezes rales or rhonchi HEART: Regular rate and rhythm. No murmur heard. Normal periphera
[2022-07-13 13:40] VITALS: BP 140/78; PULSE 70; RESP 16; O2SAT 95
== END 2022-07-13 13:40 | disposition home or self-care (01) ==
PROVIDERS: Emergency Provider Nurse Practitioner Family; PCP Nurse Practitioner
DX: S09.90XA Unspecified injury of head, initial encounter (principal); M25.551 Pain in right hip; I10 Essential (primary) hypertension; E78.5 Hyperlipidemia, unspecified; Z79.82 Long term (current) use of aspirin; W01.0XXA Fall on same level from slipping, tripping and stumbling without subsequent striking against object, initial encounter; Y92.511 Restaurant or cafe as the place of occurrence of the external cause
CPT/HCPCS: 70450; 70486; 73502; 99283

== ENCOUNTER → 2023-06-23 14:42 | Outpatient (CLI) | payer MEDICARE, SELFPAY ==
--- NOTE | ~2023-06-23 | MM_ITS ---
EXAMINATION: MM screening chano BI w parviz HISTORY: Screening TECHNIQUE: Craniocaudal and mediolateral oblique 3-D tomosynthesis images were obtained and synthetic 2-D images were generated. CAD analysis was submitted and interpreted. COMPARISON: Comparison to multiple prior studies sequentially, with oldest reviewed study dated 06/2015. BREAST PARENCHYMAL COMPOSITION: Not dense: There are scattered areas of fibroglandular density. FINDINGS: There is no evidence of suspicious mass, calcification, or architectural distortion to sugg est malignancy in either breast. There has been no suspicious interval change. IMPRESSION: 1. No mammographic evidence of malignancy. 2. Recommend routine screening mammography in one year. BI-RADS Category 2: Benign finding(s). Reviewed, dictated and finalized at location A. OPERATOR
== END ==
PROVIDERS: PCP Nurse Practitioner; Visit Provider Nurse Practitioner
DX: Z12.31 Encounter for screening mammogram for malignant neoplasm of breast (principal)
CPT/HCPCS: 77063; 77067

== ENCOUNTER 2023-10-10 10:03 | Emergency (ER) | payer MEDICARE, SELFPAY ==
--- NOTE | ~2023-10-10 | XR_ITS ---
XR toe 5th LT min 2V DATE: 10/10/2023 10:34 INDICATION: Stubbed fifth left toe. Pain at the base of the toe. TECHNIQUE: 4 views of the left fifth toe COMPARISON: None FINDINGS: Incidentally noted is prominent osteoarthritic change at the first metatarsophalangeal join t. No fracture or dislocation of the left fifth toe. IMPRESSION: No fracture or dislocation of the left fifth toe Reviewed, dictated and finalized at location A.
--- NOTE | 2023-10-10 10:06 | ED.LOWEXIN ---
HPI - Extremity Injury (Lower) General Chief Complaint: Extremity Injury, Lower Stated Complaint: stubbed left toe Time Seen by Provider: 10/10/23 10:05 Source: patient Mode of arrival: ambulatory Limitations: no limitations History of Present Illness HPI Narrative: Obdulio is a 73-year-old female patient presenting to the clinic today with complaints of left 5th toe pain. She reports she stubbed her toe yesterday. Was trying to get into the counselling psychologist to have an x-ray done and was unsuccessful. She came here today ache as she is wanting to know if for toe is broken. States she is going on a trip this week to [place]. Related Data Home Medications Medication Instructions Recorded Confirmed aspirin 81 mg tablet,delayed 81 mg PO DAILY 03/10/19 10/10/23 release (Adult Low Dose Aspirin) estradiol 0.5 mg tablet 0.5 mg PO DAILY 03/10/19 10/10/23 melatonin 5 mg tablet 5 mg PO HS 02/16/20 10/10/23 psyllium husk 0.4 gram capsule 0.4 g PO DAILY 02/16/20 10/10/23 (Metamucil) cholecalciferol (vitamin D3) 125 125 mcg PO DAILY 07/16/20 10/10/23 mcg (5,000 unit) capsule magnesium 200 mg tablet 400 mg PO DAILY 01/30/21 10/10/23 Allergies Allergy/AdvReac Type Severity Reaction Status Date / Time No Known Allergies Allergy Verified 10/10/23 10:13 Review of Systems Review of Systems: Pertinent positives per HPI. Patient denies any fever, chills, rash, headache, visual changes, dizziness, cough, runny nose, sore throat, shortness of breath, chest pain, palpitations, nausea, vomiting, diarrhea, constipation, abdominal pain, or any urinary issues. [facility] Past Medical History Medical History Constipation Depression Essential hypertension History of gastric ulcer 2013 -found on EGD. Currently on PPI. Hyperlipidemia Iron deficiency Obese Overactive bladder Vitamin D deficiency, unspecified Surgical History Surgical History History of bladder surgery History of colonoscopy Most recent colonoscopy in 2018 with findings of internal hemorrhoids. History of esophagogastroduodenoscopy (EGD) History of hysterectomy Family History Family History Father Diabetes mellitus Social History Social History Smoking status: Never smoker Second hand tobacco smoke exposure: Yes Alcohol intake: current Drinks per week: 4 Alcohol use details: wine Substance use: never Substance use type: does not use Lack of Transportation: No Lack of Food: Never True Current Housing: I Have Housing Concerned About Future Housing: No Difficulty Paying Gas/Electric Bills: No Difficulty Paying for Meds: No Currently Unemployed: No Education: Bachelor's Degree Difficulty w/ Childcare or Family Care: No Comments At the time of my signature, I reviewed and agree with the nursing past medical, surgical, social, and family history. There is no relevant family history pertinent to the patient complaint. Exam Narrative: General: Well-developed, well nourished, in no apparent distress Head: Normocephalic, atraumatic. Cardio: Regular rate and rhythm, s1 and s2 normal, no murmur appreciated. Resp: Clear to auscultation bilaterally, no rhonchi, rales, wheezing or rubs. Musculoskeletal: No deformity, redness and swelling to the base of the left 5th toe with tenderness to palpation,grossly normal range of motion, muscle strength strong and equal, peripheral pulse strong, no cyanosis, normal gait and station Course Course Emergency Course: Portions of this record may have been created with voice recognition software. Level of Care: Express Care Visit Vital Signs Vital signs: Vital signs reviewed MDM - Extremity Injury (Lower) MDM Narrative Medical decision making narrative:
[2023-10-10 10:17] VITALS: BP 120/76; PULSE 53; RESP 19; TEMP 36.6; O2SAT 97
== END 2023-10-10 10:56 | disposition home or self-care (01) ==
PROVIDERS: Emergency Provider Nurse Practitioner Family; PCP Nurse Practitioner
DX: S93.505A Unspecified sprain of left lesser toe(s), initial encounter (principal); X58.XXXA Exposure to other specified factors, initial encounter; I10 Essential (primary) hypertension; E78.5 Hyperlipidemia, unspecified; E66.9 Obesity, unspecified; Z68.31 Body mass index [BMI] 31.0-31.9, adult; E55.9 Vitamin D deficiency, unspecified; Z79.82 Long term (current) use of aspirin
CPT/HCPCS: 73660; 99213; G0463

== ENCOUNTER 2023-12-21 04:14 | Emergency (ER) | payer MEDICARE, SELFPAY ==
--- NOTE | ~2023-12-21 | US_ITS ---
EXAMINATION: US venous doppler [facility] DATE: 12/21/2023 07:58 INDICATION: Lower limb pain and swelling. TECHNIQUE: Grayscale ultrasound images without and with compression and Doppler ultrasound images of the bilateral lower extremity veins were obtained. COMPARISON: None. FINDINGS: The visualized portions of right common femoral vein, profunda (deep) femoral vein, popliteal vein, p eroneal veins, posterior tibial veins, and greater saphenous vein outflow are patent. The right femor al vein is not well evaluated. The visualized portions of left common femoral vein, profunda femoral vein, and greater saphenous vei n outflow are patent. The left femoral, popliteal, posterior tibial, and peroneal veins are not well evaluated. IMPRESSION: 1. No deep venous thrombosis. 2. Many lower limb veins not well evaluated due to patient refusal. Reviewed, dictated and finalized at location A.
[2023-12-21 04:19] VITALS: BP 122/50; PULSE 63; RESP 19; TEMP 36.3; O2SAT 96
[2023-12-21 04:24] VITALS: BP 152/62; PULSE 60; RESP 16; TEMP 36.8; O2SAT 96
[2023-12-21] MEDS: ACETAMINOPHEN 325 MG TABLET 650 MG PO (04:59)
[2023-12-21] MEDS: diazePAM INJ (*CRX) 10 MG/2 ML SYRINGE 5 MG IM (04:59)
[2023-12-21] MEDS: KETOROLAC 30 MG/ML VIAL (*BKC) IM (04:59)
[2023-12-21] MEDS: HYDROcodone/acetaminophen (*CRX) 5-325 MG TABLET 1 TAB PO (05:00)
[2023-12-21] MEDS: LIDOCAINE 5% PATCH 1 PATCH TRANSDERM (05:00)
--- NOTE | 2023-12-21 05:00 | ED.GENADULT ---
HPI - General Adult General Chief complaint: Extremity Problem,Nontraumatic <Akash Rivera MD - Last Filed: 12/21/23 07:12> Stated complaint: Right leg pain, L ankle swelling <Akash Rivera MD - Last Filed: 12/21/23 07:12> Time Seen by Provider: 12/21/23 04:40 <Akash Rivera MD - Last Filed: 12/21/23 07:12> History of Present Illness HPI narrative: This is a 73-year-old female with history of chronic pain presenting to the ED for right-sided sciatica. Patient has degenerative spinal disease. She has seen a neurosurgeon in she says she has inoperable. She was then sent to physical therapy which she said did not help. She then was sent to a pain specialist. She is presenting today because she has developed sciatica it starts right lower back and radiates down to her leg. It is a sharp shooting pain. She has had this in the past although not this severe. She called her primary care physician and prescribed methocarbamol and a methylprednisolone pack. She has been taking those with no relief. Patient is frustrated because it is difficult to sleep this pain. <Akash Rivera MD - Last Filed: 12/21/23 07:12> Related Data Home medications: Home Medications Medication Instructions Recorded Confirmed aspirin 81 mg tablet,delayed 81 mg PO DAILY 03/10/19 10/10/23 release (Adult Low Dose Aspirin) estradiol 0.5 mg tablet 0.5 mg PO DAILY 03/10/19 10/10/23 melatonin 5 mg tablet 5 mg PO HS 02/16/20 10/10/23 psyllium husk 0.4 gram capsule 0.4 g PO DAILY 02/16/20 10/10/23 (Metamucil) cholecalciferol (vitamin D3) 125 125 mcg PO DAILY 07/16/20 10/10/23 mcg (5,000 unit) capsule magnesium 200 mg tablet 400 mg PO DAILY 01/30/21 10/10/23 <Akash Rivera MD - Last Filed: 12/21/23 07:12> Allergies/adverse reactions: Allergies Allergy/AdvReac Type Severity Reaction Status Date / Time No Known Allergies Allergy Verified 10/10/23 10:13 <Akash Rivera MD - Last Filed: 12/21/23 07:12> [facility] Past Medical History Medical History: Medical History Constipation Depression Essential hypertension History of gastric ulcer 2014 -found on EGD. Currently on PPI. Hyperlipidemia Iron deficiency Obese Overactive bladder Vitamin D deficiency, unspecified <Akash Rivera MD - Last Filed: 12/21/23 07:12> Surgical History Surgical History: Surgical History History of bladder surgery History of colonoscopy Most recent colonoscopy in 2018 with findings of internal hemorrhoids. History of esophagogastroduodenoscopy (EGD) History of hysterectomy <Akash Rivera MD - Last Filed: 12/21/23 07:12> Family History Family History: Family History Father Diabetes mellitus <Akash Rivera MD - Last Filed: 12/21/23 07:12> Social History Social History: Social History Smoking status: Never smoker Second hand tobacco smoke exposure: Yes Alcohol intake: current Drinks per week: 4 Alcohol use details: wine Substance use: never Substance use type: does not use Lack of Transportation: No Lack of Food: Never True Current Housing: I Have Housing Concerned About Future Housing: No Difficulty Paying Gas/Electric Bills: No Difficulty Paying for Meds: No Currently Unemployed: No Education: Bachelor's Degree Difficulty w/ Childcare or Family Care: No <Akash Rivera MD - Last Filed: 12/21/23 07:12> Exam Narrative: APPEARANCE: No apparent distress. Head: atraumatic. EYES: EOMI, NOSE: Atraumatic NECK: No pain on palpation of the lumbar spine or paraspinal muscles. RESPIRATORY: No increased rate of breathing CARDIOVASCULAR: RRR, ABDOMINAL: Non-distended MUSCULOSKELETAl: Focal exam of the right lower extremity revealed no
[2023-12-21 06:06] VITALS: BP 112/71; PULSE 55; RESP 16; TEMP 36.6; O2SAT 95
[2023-12-21 08:13] VITALS: BP 112/64; PULSE 60; RESP 16; TEMP 36.4; O2SAT 98
== END 2023-12-21 08:15 | disposition home or self-care (01) ==
PROVIDERS: Emergency Provider Emergency Medicine; PCP Nurse Practitioner
DX: M54.31 Sciatica, right side (principal); G89.29 Other chronic pain; I10 Essential (primary) hypertension; E78.5 Hyperlipidemia, unspecified
CPT/HCPCS: 93970; 96372; 99284; A9270; J1885; J3360

== ENCOUNTER 2024-01-04 09:54 | Emergency (ER) | payer MEDICARE, SELFPAY ==
[2024-01-04 10:02] VITALS: BP 131/55; PULSE 64; RESP 18; TEMP 36.2; O2SAT 98
--- NOTE | 2024-01-04 10:50 | ED.LOWEXIN ---
HPI - Extremity Injury (Lower) General Chief Complaint: Extremity Injury, Lower Stated Complaint: SWOLLEN FOOT, DENIES INJURY Time Seen by Provider: 01/04/24 10:49 Source: patient Mode of arrival: ambulatory Limitations: no limitations History of Present Illness HPI Narrative: This is a 73-year-old female who presents to the ED for chief complaint of left lower extremity swelling for the past 5 days. Reports swelling is most concentrated around the foot and left ankle. Denies specific injury or trauma. Denies pain to the calf, overlying skin changes. Denies chest pain, shortness of breath, recent travel. Denies recent hospitalization or immobilization. Denies history of blood clot. No active cancer. Related Data Home Medications Medication Instructions Recorded Confirmed aspirin 81 mg tablet,delayed 81 mg PO DAILY 03/10/19 12/22/23 release (Adult Low Dose Aspirin) estradiol 0.5 mg tablet 0.5 mg PO DAILY 03/10/19 12/22/23 melatonin 5 mg tablet 5 mg PO HS 02/16/20 12/22/23 psyllium husk 0.4 gram capsule 0.4 g PO DAILY 02/16/20 12/22/23 (Metamucil) cholecalciferol (vitamin D3) 125 125 mcg PO DAILY 07/16/20 12/22/23 mcg (5,000 unit) capsule magnesium 200 mg tablet 400 mg PO DAILY 01/30/21 12/22/23 Allergies Allergy/AdvReac Type Severity Reaction Status Date / Time No Known Allergies Allergy Verified 01/04/24 10:30 Review of Systems Review of Systems: All systems as dictated in HPI [facility] Past Medical History Medical History Constipation Depression Essential hypertension History of gastric ulcer 2013 -found on EGD. Currently on PPI. Hyperlipidemia Iron deficiency Obese Overactive bladder Vitamin D deficiency, unspecified Surgical History Surgical History History of bladder surgery History of colonoscopy Most recent colonoscopy in 2018 with findings of internal hemorrhoids. History of esophagogastroduodenoscopy (EGD) History of hysterectomy Family History Family History Father Diabetes mellitus Social History Social History Smoking status: Never smoker Second hand tobacco smoke exposure: Yes Alcohol intake: current Drinks per week: 4 Alcohol use details: wine Substance use: never Substance use type: does not use Lack of Transportation: No Lack of Food: Never True Current Housing: I Have Housing Concerned About Future Housing: No Difficulty Paying Gas/Electric Bills: No Difficulty Paying for Meds: No Currently Unemployed: No Education: Bachelor's Degree Difficulty w/ Childcare or Family Care: No Exam Narrative: GENERAL: Well-appearing, well-nourished, and in no acute distress. HEAD: Normocephalic, atraumatic. EYES: PERRLA and EOMI. ENT: Nares clear, no rhinorrhea or epistaxis. Mucous membranes moist. Oropharynx without tonsillar hypertrophy exudate or other lesions. NECK: Supple. No adenopathy or masses. CHEST: No respiratory distress. Clear to auscultation. No wheezes rales or rhonchi HEART: Regular rate and rhythm. No murmur heard. Normal peripheral pulses. ABDOMEN: Soft, nontender, nondistended, normal active bowel sounds. MSK: Bilateral lower extremities with swelling present. Slightly more edema noted to the left foot and left ankle compared to right. No overlying skin changes or calf tenderness. SKIN: Warm, dry, no rash. NEURO: Alert and oriented x4. No focal deficits. PSYCH: Normal mood and affect. Course Vital Signs Vital signs: Vital Signs Temperature 97.1 F L 01/04/24 10:02 Pulse Rate 64 01/04/24 10:02 Respiratory Rate 18 01/04/24 10:02 Blood Pressure 131/55 L 01/04/24 10:02 Pulse Oximetry 98 01/04/24 10:02 Temperature 97.1 F L 01/04/24 10:02 Pulse Rate 64 01/04/24 10:02
[2024-01-04 11:21] LABS: Basophils Percent Auto 0.6 % (0.2-1.2); Eosinophils Absolute Auto 0.4 K/mm3 (0-0.3); Eosinophils Percent Auto 6.2 % (0-4.4); Hematocrit 40.6 % (37.0-47.0); Hemoglobin 13.5 g/dL (12.0-15.0); Immature Granulocyte Absolute 0.02 K/mm3 (0.00-0.031); Immature Granulocyte Percent A 0.3 % (0-0.5); Lymphocytes Absolute Auto 1.37 K/mm3 (0.9-3.2); Lymphocytes Percent Auto 22.2 % (18.3-44.2); Mean Corpuscular HGB Conc 33.3 g/dl (32-36); Mean Corpuscular Hemoglobin 32.3 pg (26-34); Mean Corpuscular Volume 97.1 fl (80-100); Mean Platelet Volume 11.5 fl (7.4-10.4); Monocytes Absolute Auto 0.7 K/mm3 (0.1-0.6); Monocytes Percent Auto 11.2 % (2.6-8.5); Neutrophils Absolute Auto 3.7 K/mm3 (1.3-6.7); Neutrophils Percent Auto 59.5 % (45.5-73.1); Platelet Count Result 176 k/mm3 (150-375); Red Blood Count 4.18 M/mm3 (4.2-5.4); Red Cell Distribution Width 12.9 % (11.5-14.5); White Blood Count 6.2 K/mm3 (4.5-10.0)
[2024-01-04 11:30] LABS: Anion Gap 8 mmol/L (4-12); Blood Urea Nitrogen 19 mg/dL (7-17); Calcium 9.2 mg/dL (8.4-10.2); Carbon Dioxide 31 mmol/L (22-30); Chloride 98 mmol/L (98-107); Estimated CRCL calculation 61 ml/min; Estimated Glomerular Filt Rate > 60; Glucose 114 mg/dL (65-110); Potassium 3.8 mmol/L (3.4-5.0); Sodium 137 mmol/L (137-145)
[2024-01-04 11:34] LABS: Prothrombin Time 13.3 Seconds (11.1-14.7)
[2024-01-04 11:58] LABS: D Dimer 0.44 ug/mL (<0.48)
[2024-01-04 12:11] VITALS: BP 132/74; PULSE 80; RESP 19; O2SAT 99
== END 2024-01-04 12:10 | disposition home or self-care (01) ==
PROVIDERS: Emergency Provider Physician Assistant; PCP Nurse Practitioner
DX: R22.43 Localized swelling, mass and lump, lower limb, bilateral (principal); I10 Essential (primary) hypertension; E78.5 Hyperlipidemia, unspecified; E55.9 Vitamin D deficiency, unspecified; E61.1 Iron deficiency; E66.9 Obesity, unspecified; Z68.32 Body mass index [BMI] 32.0-32.9, adult; N32.81 Overactive bladder; F32.A Depression, unspecified; Z90.710 Acquired absence of both cervix and uterus; Z77.22 Contact with and (suspected) exposure to environmental tobacco smoke (acute) (chronic); Z79.82 Long term (current) use of aspirin; Z79.890 Hormone replacement therapy; Z79.899 Other long term (current) drug therapy
CPT/HCPCS: 36415; 80048; 85025; 85380; 85610; 99283

== ENCOUNTER 2024-01-05 12:24 | Outpatient (CLI) | payer MEDICARE, SELFPAY ==
--- NOTE | ~2024-01-05 | US_ITS ---
EXAMINATION:US venous doppler LE BI INDICATION:Bilateral leg swelling TECHNIQUE: Multiple grayscale, color flow and Doppler images of the right and left lower extremity de ep venous systems were obtained and reviewed. COMPARISON:No prior studies for comparison. FINDINGS: The common femoral, superficial femoral and popliteal veins demonstrate normal respiratory variation, augmentation and compressibility. Color flow is also seen within the posterior tibial, pe roneal, greater saphenous and profunda veins. IMPRESSION: 1: No lower extremity deep venous thrombosis. Reviewed, dictated and finalized at location B.
== END 2024-01-05 12:25 | disposition home or self-care (01) ==
PROVIDERS: PCP Nurse Practitioner; Visit Provider Internal Medicine
DX: M79.89 Other specified soft tissue disorders (principal)
CPT/HCPCS: 93970

== ENCOUNTER 2024-03-04 08:21 | Outpatient (CLI) | payer MEDICARE, SELFPAY ==
--- NOTE | ~2024-03-04 | MR_ITS ---
EXAMINATION: MR lumbar spine wo con DATE: 03/04/2024 09:19 INDICATION: Lumbar radiculopathy TECHNIQUE: Magnetic resonance imaging (MRI) of the lumbar spine was performed without intravenous con trast. Sequences included sagittal T2-weighted FSE, sagittal T2-weighted FS FSE, sagittal T1-weighted FSE, and axial T2-weighted FSE. COMPARISON: 07/19/2021 FINDINGS: 10 degrees thoracolumbar levocurvature. One-2 mm retrolisthesis L1 on L2, one-2 mm retrolisthesis L2 on L3 and 2 mm anterolisthesis L3 on L4. Vertebral body heights are normal. Severe posterior and righ t-sided predominant disc height loss with mild right-sided fibrovascular degenerative endplate change s at L1-L2. Severe disc height loss at L5-S1. Moderate disc height loss at L2-L3 and mild disc height loss at L3-L4 and L4-L5. T1 and T2 hyperintense hemangioma at L5. Otherwise normal bone marrow signa l. The conus medullaris terminates at L1-L2. There is normal signal in the caudal spinal cord. A coup le T2 hyperintense cysts at the right kidney the larger measuring 2.0 cm. Prominent relatively symmet michelle fatty atrophy of the posterior paraspinal musculature. The following disc levels are specifically discussed: T12-L1: Disc is mildly bulging. There is moderate bilateral facet joint osteoarthritis. There is no n eural foraminal stenosis. There is minimal central canal stenosis. L1-L2: Disc is bulging. There is mild right and moderate left facet joint osteoarthritis. There is mi ld bilateral neural foraminal stenosis. There is mild central canal stenosis. L2-L3: Disc is bulging. There is severe bilateral facet joint osteoarthritis. There is mild bilateral neural foraminal stenosis. There is mild central canal stenosis. L3-L4: The disc does not extend beyond the more posterior L4 endplate margin. There is mild hypertrop hy of the ligamentum flavum. There is severe bilateral facet joint osteoarthritis. There is mild cale ateral neural foraminal stenosis. There is mild central canal stenosis. L4-L5: The disc does not extend beyond the endplate margin. There is mild hypertrophy of the ligament um flavum. There is severe bilateral facet joint osteoarthritis. There is mild bilateral neural fora herb stenosis. There is minimal central canal stenosis. L5-S1: Disc is bulging with annular fissure. There is moderate bilateral facet joint osteoarthritis. There is mild bilateral neural foraminal stenosis. There is mild central canal stenosis. IMPRESSION: 1. No significant interval change in severe lumbar spondylosis. Reviewed, dictated and finalized at location A.
== END 2024-03-04 08:22 | disposition home or self-care (01) ==
PROVIDERS: PCP Nurse Practitioner; Visit Provider Internal Medicine
DX: M47.26 Other spondylosis with radiculopathy, lumbar region (principal)
CPT/HCPCS: 72148

== ENCOUNTER 2024-09-05 08:22 | Outpatient (CLI) | payer MEDICARE, SELFPAY ==
--- NOTE | ~2024-09-05 | MM_ITS ---
EXAMINATION: MM screening chano BI w parviz HISTORY: Screening TECHNIQUE: Craniocaudal and mediolateral oblique 3-D tomosynthesis images were obtained and synthetic 2-D images were generated. CAD analysis was submitted and interpreted. COMPARISON: Comparison to multiple prior studies sequentially, with oldest reviewed study dated 06/2015. BREAST PARENCHYMAL COMPOSITION: Not dense: There are scattered areas of fibroglandular density. FINDINGS: There is no evidence of suspicious mass, calcification, or architectural distortion to sugg est malignancy in either breast. There has been no suspicious interval change. IMPRESSION: 1. No mammographic evidence of malignancy. 2. Recommend routine screening mammography in one year. BI-RADS Category 1: Negative Reviewed, dictated and finalized at location A.
--- NOTE | ~2024-09-05 | DEXA_ITS ---
Bone Density Report Name: LISA OLSON Age: 74 Sex: Female Ethnicity: White Date of : 1950 Indication: postmenopausal; screening for osteoporosis; height loss; Referring Provider: GUILLERMO FRANCIS Study: Bone densitometry was performed. Exam Date: September 05, 2024 Accession number: [id number] Bone Density: Region BMD T-score Z-score Classification AP Spine(L1-L4) 1.212 1.5 4.0 Normal Femoral Neck (Left) 1.008 1.4 3.6 Normal Total Hip (Left) 1.144 1.7 3.5 Normal Femoral Neck (Right) 0.870 0.2 2.3 Normal Total Hip (Right) 1.045 0.8 2.7 Normal Total Hip Mean 1.094 1.3 3.1 Normal World Health Organization criteria for BMD impression classify patients as: Normal (T-score at or above -1.0), Osteopenia (T-score between -1.0 and -2.5), or Osteoporosis (T-score at or below -2.5). 10-year Fracture Risk: FRAX not reported because: All T-scores for Spine Total, Hip Total, Femoral Neck at or above -1.0 Clinical Information Provided by Patient: Patient maximum height was 64 Menopause Age: 30 No regular weight bearing exercise Does not regularly consume dairy products Drinks caffeinated beverages Onset of menses at age 10 Number of children 1 Impression: The patient has normal bone mass. Discussion: LOW RISK OF FRACTURE; BONE DENSITY IS WELL ABOVE THE MINIMUM DESIRABLE LEVEL AND ABOVE AVERAGE FOR AGE AND SEX AT ALL SKELETAL SITES TESTED. This person's bone density is above expected limits for age and sex. This is rarely clinically significant, but should be pursued if there are significant musculoskeletal complaints. The patient should follow a healthful lifestyle (good nutrition with adequate calcium and vitamin D, and appropriate weight-bearing exercise). Follow-Up: Consider repeating this study in 5 years or sooner if there is some new clinical indication. Reported by: TARIQ on 09/05/2024 9:11:00 AM. Reviewed, dictated and finalized at location AAbigail OLIVAREZ
--- OUTSIDE RECORDS SUMMARY | 2024-09-05 08:36 | XMS_ITS | Encounter Summary ---
Author Organization [employer] Address [address] [place] [address] Care Team Providers Care Grill Associate Name Role Phone Mike Hawthorne DO Primary Care Provider Encounter Details Date Type Department Care Team (Late st Contact Info) Description 07/01/2005 Outpatient Historical [facility] [email or web address] 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
--- OUTSIDE RECORDS SUMMARY | 2024-09-05 08:36 | XMS_ITS | Encounter Summary ---
Author Organization [employer] [facility] Address 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
--- OUTSIDE RECORDS SUMMARY | 2024-09-05 08:36 | XMS_ITS | Encounter Summary ---
Author Organization [employer] Address [address] [place] [address] Care Team Providers Care Gear Straightener Name Role Phone Mike Hawthorne DO Primary Care Provider [phone] Encounter Details Date Type Department Care Team (Late st Contact Info) Description 07/03/2005 Outpatient Historical [facility] [employer] 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 [address] [place] [address] PCP - General Internal Medicine 10/17/20 documented as of this encounter
--- OUTSIDE RECORDS SUMMARY | 2024-09-05 08:36 | XMS_ITS | Encounter Summary ---
Author Organization [facility] Address [address] [place] [address] Care Team Providers Care Waiter/Waitress Dining Car Name Role Phone Mike Hawthorne DO Primary Care Provider [phone] Encounter Details Date Type Department Care Team (Late st Contact Info) Description 07/13/2003 Outpatient Historical [facility] Primary Care - [address] [place] [address] Ervin Macdonald MD [address] [facility] [address] [id number] Social History Tobacco Use Types Packs/Day Years Used Date Smoking Tobacco: Never Assessed Comments Unknown Sex and Gender Information Value Date Recorded Sex Assigned at Female 01/24/2024 9:50 PM CDT Legal Sex Female 3: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
--- OUTSIDE RECORDS SUMMARY | 2024-09-05 08:36 | XMS_ITS | Encounter Summary ---
Author Organization [facility] Address 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
--- OUTSIDE RECORDS SUMMARY | 2024-09-05 08:36 | XMS_ITS | Encounter Summary ---
Author Organization [facility] Address [address] [place] [address] Care Team Providers Care Erp Manager Name Role Phone Mike Hawthorne DO Primary Care Provider [phone] Encounter Details Date Type Department Care Team (Late st Contact Info) Description 03/24/2002 Outpatient Historical [facility] LUMBER SORTER - [address] [address] Drake Zheng MD [address] [place] [phone] Social History Tobacco Use Types Packs/Day Years Used Date Smoking Tobacco: Never Assessed Comments Unknown Sex and Gender Information Value Date Recorded Sex Assigned at Female 01/24/2024 9:50 PM CDT Legal Sex Female 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
--- OUTSIDE RECORDS SUMMARY | 2024-09-05 08:36 | XMS_ITS | Encounter Summary ---
Author Organization [facility] Address [address] [place] [address] Care Team Providers Care Rivet Hammer Machine Operator Name Role Phone Mike Hawthorne DO Primary Care Provider [phone] Encounter Details Date Type Department Care Team (Late st Contact Info) Description 01/31/2005 Outpatient Historical [facility] Primary Care - [address] [place] [address] Ervin Macdonald MD [address] [facility] [address] [phone] Social History Tobacco Use Types Packs/Day Years Used Date Smoking Tobacco: Never Assessed Comments Unknown Sex and Gender Information Value Date Recorded Sex Assigned at Female 01/24/2024 9:50 PM CDT Legal Sex Female 3:49 AM SUBSTANCE 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
--- OUTSIDE RECORDS SUMMARY | 2024-09-05 08:36 | XMS_ITS | Encounter Summary ---
Author Organization [facility] Address [address] [place] [address] Care Team Providers Care Plant Science Professor Name Role Phone Mike Hawthorne DO Primary Care Provider [phone] Encounter Details Date Type Department Care Team (Late st Contact Info) Description 07/17/2006 Outpatient Historical [facility] Primary Care [address] [place] [address] Karolina Dunbar MD NO ADDRESS ON FILE Social History Tobacco Use Types Packs/Day Years Used Date Smoking Tobacco: Never Assessed Comments Unknown Sex and Gender Information Value Date Recorded Sex Assigned at Female 01/24/2024 9:50 PM CDT Legal Sex Female 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 [address] [place] [address] PCP - General Internal Medicine 10/17/20 documented as of this encounter
--- OUTSIDE RECORDS SUMMARY | 2024-09-05 08:36 | XMS_ITS | Encounter Summary ---
Author Organization [email or web address] Address [address] [place] [address] Care Team Providers Care Supervisor Receiving And Processing Name Role Phone Mike Hawthorne DO Primary Care Provider Encounter Details Date Type Department Care Team (Late st Contact Info) Description 02/26/1999 Outpatient Historical [facility] Vivek Chin Social History Tobacco Use Types Packs/Day Years Used Date Smoking Tobacco: Never Assessed Comments Unknown Sex and Gender Information Value Date Recorded Sex Assigned at Female 01/24/2024 9:50 PM CDT Legal Sex Female 3:49 AM FERMENTER Gender Identity Female 01/24/2024 9:50 PM CDT Sexual Orientation Not on file documented as of this encounter Plan of Treatment Not on file documented as of this encounter Visit Diagnoses Not on filedocumented in this encounter Care Teams Supervisor Receiving And Processing Relationship Specialty Start Date End Date Mike Hawthorne DO [address] [facility] [address] [place] [address] PCP - General Internal Medicine 10/17/20 documented as of this encounter
--- OUTSIDE RECORDS SUMMARY | 2024-09-05 08:36 | XMS_ITS | Encounter Summary ---
Author Organization [facility] Address [address] [place] [address] Care Team Providers Care Head Inspector Name Role Phone Mike Hawthorne DO Primary Care Provider [phone] Encounter Details Date Type Department Care Team (Late st Contact Info) Description 01/31/[address] [facility] Primary Care - [address] [place] [address] Ervin Macdonald MD [address] 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
--- OUTSIDE RECORDS SUMMARY | 2024-09-05 08:36 | XMS_ITS | Encounter Summary ---
Author Organization [employer] Address [address] [place] [address] Care Team Providers Care Remote Sensing Analyst Name Role Phone Mike Hawthorne DO Primary Care Provider [phone] Encounter Details Date Type Department Care Team (Late st Contact Info) Description 06/02/2005 Outpatient Historical [facility] 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
--- OUTSIDE RECORDS SUMMARY | 2024-09-05 08:36 | XMS_ITS | Encounter Summary ---
Author Organization [facility] Address [address] [place] [address] Care Team Providers Care Operations Research Analyst Name Role Phone Mike Hawthorne DO Primary Care Provider [phone] Encounter Details Date Type Department Care Team (Late st Contact Info) Description 05/23/2005 Outpatient [facility] Primary Care [address] [place] [address] Karolina Dunbar MD NO ADDRESS ON FILE Social History Tobacco Use Types Packs/Day Years Used Date Smoking Tobacco: Never Assessed Comments Unknown Sex and Gender Information Value Date Recorded Sex Assigned at Female 01/24/2024 9:50 PM CDT Legal Sex Female 3:49 AM TYPE PROOF REPRODUCER Gender Identity Female 01/24/2024 9:50 PM CDT Sexual Orientation Not on file documented as of this encounter Plan of Treatment Not on file documented as of this encounter Visit Diagnoses Not on filedocumented in this encounter Care Teams Operations Research Analyst Relationship Specialty Start Date End Date Mike Hawthorne DO [address] [facility] [address] [place] [address] PCP - General Internal Medicine 10/17/20 documented as of this encounter
--- OUTSIDE RECORDS SUMMARY | 2024-09-05 08:36 | XMS_ITS | Clinical Summary ---
Author Organization [employer] [facility] Address [address] [place] [address] Phone Care Team Providers Care Manufacturing Quality Manager Name Role Phone Mike Hawthorne DO Primary Care Provider [phone] Allergies Active Allergy Reactions Criticality Noted Date Comments Oxlgoal-Xrl-Pow Reductase Inhibitors Weakness Low 12/07/2009 Medications aspirin (ADALGISA) 81 mg Oral Tab Take 81 mg by mouth daily. Active POLYETHYLENE GLYCOL 3350 (MIRALAX ORAL) Take by mouth. Active DOCUSATE CALCIUM (STOOL SOFTENER ORAL) Take by mouth. Active magnesium oxide (MAG-OX) 400 mg tablet Take 400 mg by mouth daily. Active melatonin 5 mg Tablet Take by mouth daily at bedtime. Active potassium chloride (KLOR-CON) 10 mEq Extended Release tabletIndications:E ssential hypertension TAKE ONE TABLET BY MOUTH FOUR TIMES A DAY 360 Tablet 3 9 Active meloxicam (MOBIC) 15 mg tabletIndications:G eneralized osteoarthrosis, involving multiple sites Take 1 Tablet (15 mg) by mouth daily. 90 Tablet 3 9 Active lisinopriL (PRINIVIL) 5 mg tabletIndications:E ssential hypertension TAKE ONE TABLET BY MOUTH ONCE DAILY 90 Tablet 0 Active atenoloL-chlorthali done (TENORETIC) 50-25 mg tabletIndications:E ssential hypertension TAKE ONE TABLET BY MOUTH ONCE DAILY 90 Tablet 0 Active colestipoL (COLESTID) 1 gram tabletIndications:M ixed hyperlipidemia TAKE ONE TABLET BY MOUTH TWICE A DAY 180 Tablet 0 Active mirabegron (MYRBETRIQ) 50 mg Extended Release 24 hour tablet Take 1 Tablet (50 mg) by mouth daily. 90 Tablet 1 3 Active pantoprazole (PROTONIX) 40 mg Tablet, Delayed Release (E.C.) TAKE 1 TABLET BY MOUTH DAILY 90 Tablet 3 Active estradioL (ESTRACE) 0.5 mg tablet Take 1 Tablet (0.5 mg) by mouth daily. 90 Tablet 2 5 Active Active Problems Patient Care Coordination No te Formatting of this note migh t be different from the original. Inside Sales Daron Villar MD. (JIE) Problem Noted Date Diagnosed Date Screening for breast cancer 07/30/2018 Severe obesity (BMI 35.0-39.9) with comorbidity 06/12/2017 Prediabetes 05/08/2017 Need for pneumococcal vaccination 05/08/2017 Routine general medical exam ination at a health care facility 11/26/2015 Numbness of right hand 06/29/2015 Generalized osteoarthrosis, involving multiple s ites 03/12/2015 Gastroesophageal reflux disease without esophagi tis 03/12/2015 Anemia 03/23/2014 SOB (shortness of breath) 02/13/2014 Hyperlipidemia 01/14/2012 Hypertension 01/14/2012 Lateral epicondylitis 11/17/2011 Overview (11/17/2011): left elbow Overactive bladder 12/16/2010 Allergic rhinitis, cause unspecified 07/15/2004 Resolved Problems Problem Noted Date Diagnosed Date Resolved Date Obesity (BMI 35.0-39.9 without comorbidity) 05/08/2017 12/21/2017 Well woman exam with routine gynecological exam 10/18/2010 12/16/2010 BENIGN HYPERTENSION 07/15/2004 01/14/20 12 PURE HYPERCHOLESTEROLEM 07/15/200401/02 Other malaise and fatigue 07/15/2004 IRRITABLE COLON 07/15/2004 01/14/2012 Sprain of unspecified site o f sacroiliac region 07/15/2004 12/16/2010 Encounters Date Type Department Care Team Description 07/29/2024 Orders Only [facility] Clinical Support [address] [place] [address] Nicole SykesCARINA 07/29/2024 Telephone [facility] Women's [facility] Clinical Support [address] [place] [address] Nicole Sykes, product design manager Question 07/20/2024 External Device Data ST[facility] ABSTRACTION Provider, Abstract 07/09/2024 External Device Data [facility] ABSTRACTION Provider, Abstract 07/08/2024 External Device Data [facility] ABSTRACTION Provider, Abstract 07/06/2024 External Device Data ST[facility] ABSTRACTION Provider, Abstract 07/01/2024 Refill [facility] TIP LENGTH CHECKER - [address] [place] [address] Drake Zheng MD Overactive bladder 06/21/2024 External Device Data STL ABSTRACTION Provider, Abstract from Last 3 Months Immunizations Immunization Administration Dates Next Due (PNEUMOVAX 23)(50 YRS UP) PN EUMOCOCCAL POLYSACCHARIDE (PPV23) 0.5 ML, IM 05/08/2017 (PREVNAR 13)(6 WKS UP) PNEUM OCOCCAL CONJUGATE (PCV13) 0.5 ML, IM 03/12/2015 (SHINGRIX)(50 YRS UP) ZOSTER VACCINE RECOMBINANT, 0.5 ML, IM 10/03/2020 INFLUENZA VACCINE QUADRIVALENT 6 MOS UP PF IM Influenza Seasonal Unspecified Formulation IM Influenza Vaccine High Dose 65+ Yrs IM 6 Influenza Vaccine Split 3+ Yrs PF IM 03/12/2015 Zoster Vaccine Live SQ 04/18/2015 Family History Medical History Relation Name Comments Diabetes Brother Diabetes Father Heart Disease Father Lung Cancer Father Cancer Mother lung Breast Cancer Other first cousin Colon Cancer Neg Hx Ovarian Cancer Neg Hx Relation Name Status Comments Brother Father Mother Other first cousin Alive Social History Tobacco Use Types Packs/Day Years Used Date Smoking Tobacco: Never Smokeless Tobacco: Never Alcohol Use Standard Drinks/Week Comments No 0 (1 standard drink = 0.6 oz pur e alcohol) Comments No Sex and Gender Information Value Date Recorded Sex Assigned at Female 01/24/2024 9:50 PM CDT Legal Sex Female 3:49 AM CALL CENTER RN Gender Identity Female 01/24/2024 9:50 PM CDT Sexual Orientation Not on file Occupation Industry Job Start Date Job End Date Not on file Not on file Not on file Not on file Last Filed Vital Signs Vital Sign Reading Time Taken Comments Blood Pressure 134/84 12/27/2021 10:15 AM CDT Pulse 70 10/17/2020 10:50 AM CDT Temperature 36.1 C (97 F) 10/17/2020 10:50 AM CDT Respiratory Rate 16 04/16/2020 10:23 AM CALL CENTER RN Oxygen Saturation 98% 11/08/2018 10:01 AM CDT Inhaled Oxygen Concentration - - Weight 84.4 kg (186 lb) 12/27/2021 10:15 AM CDT Height 162.6 cm (5' 4 ) 12/27/2021 10:15 AM CDT Body Mass Index 31.93 12/27/2021 10:15 AM CDT Plan of Treatment Health Maintenance Due Date Last Done Comments DTAP/TDAP/TD VACCINES (1 - Tdap) 1967 ZOSTER VACCINE (3 of 3) 11/28/2020 10/03/2020, 04/18 RSV VACCINE (60+ or ) (1 - 1-dose 75+ series) 2023 INFLUENZA VACCINE (#1) 2023 8, 03/05/2017, 04/05/2016, Additional history exists OSTEOPOROSIS SCREENING 06/22/2024 06/22/2019, 2008 FIT/FOBT Q 1 year Discontinued 07/16/2004, 07/01/2001 COLORECTAL SCREENING Discontinued 03/21/2014, 03/21/2014, 05/08/2008 Colorectal Cancer Screening Discontinued PNEUMOCOCCAL VACCINE 50+ YEARS Completed 05/08/2017 , 03/12/2015 FIT-DNA Q 3 years Discontinued Flex Sig/CT Colonography Q 5 years Discontinued Procedures Procedure Name Priority Date/Time Associated Diagnosis Comments XR DEXA BONE DENSITY AXIAL 1 OR MORE SITES Routine 06/22/2019 2:05 PM CALL CENTER RN History of estrogen therapy Post-menopause COLONOSCOPY REPORT Routine 03/21/2014 from Last 3 Months or Most Recently Relevant to Health Maintenance Results * XR DEXA BONE DENSITY AXIAL 1 OR MORE SITES (06/22/2019 2:05 PM CALL CENTER RN) Anatomical Region Laterality Modality Digital Radiogra phy 06/22/2019 2:38 PM CALL CENTER RN Impressions 06/22/2019 2:42 PM CALL CENTER RN IMPRESSION: This is a summary page. Please refer to the complete detailed report found in the Imaging Section of the [facility] EMR. Normal bone mineral densities. Lumbar Spine: T-Score: 2.3 Left Femoral Neck: T-Score: 1.2 Left Total Femur: T-Score: 1.1 Right Femoral Neck: T-Score: 0.8 Right Total Femur: T-Score: 1.2 Statistical change: No significant change in BMD since the prior exam. FRAX FRACTURE RISK ASSESSMENT: (Only valid Between 40-89 Years Of Age) Risk factors: None. 10 Year Probability Of Fracture Major Osteoporotic: 4.8 % Hip: 0.1 % Comparison population: [place], Race: White A major osteoporotic fracture is defined as a fracture of the spine, forearm, hip or shoulder. Definitions: Normal: T-score above -1.0 Osteopenia T-score less than -1.0 and above -2.5 Osteoporosis: T-score <= -2.5 Follow-up Recommendations: Patients without high risk factors for osteoporosis T-score -1.0 to -1.5 - Consider repeat BMD in 5-10 years T-score -1.5 to - 2.0 - Consider repeat BMD in 3-5 years T-score -2.0 to - 2.5 - Consider repeat BMD every 2 years Patients on treatment for osteoporosis 1-2 years after initiation of treatment and every 2 years thereafter D[address] Dr[address] Anthony Hagen MD DICTATION LOCATION: 1 [facility] 06/22/2019 2:42 PM CALL CENTER RN EXAMINATION: BONE DENSITY STUDY (DXA) DATE: 06/22/2019 2:05 PM HISTORY: 69 years Female. Postmenopausal. PROCEDURE: Planar images of the lumbar spine and hip(s) using a [employer] DEXA scanner for bone mineral density determination (BMD). Prior bone density: 12/12/2005 FINDINGS: Lumbar Spine (L1-L4): T-Score: 2.3 1.479 g/sq cm Prior: 1.347 g/sq cm Left Femoral Neck: T-Score: 1.2 1.202 g/sq cm Prior: 1.072 g/sq cm Left Total Femur: T-Score: 1.1 Right Femoral Neck: T-Score: 0.8 1.148 g/sq cm Right Total Femur: T-Score: 1.2 INCIDENTAL FINDINGS: None. Procedure Note Anthony Hagen MD - 06/22/2019 EXAMINATION: BONE DENSITY STUDY (DXA) DATE: 06/22/2019 2:05 PM HISTORY: 69 years Female. Postmenopausal. PROCEDURE: Planar images of the lumbar spine and hip(s) using a [employer] DEXA scanner for bone mineral density determination (BMD). Prior bone density: 12/12/2005 FINDINGS: Lumbar Spine (L1-L4): T-Score: 2.3 1.479 g/sq cm Prior: 1.347 g/sq cm Left Femoral Neck: T-Score: 1.2 1.202 g/sq cm Prior: 1.072 g/sq cm Left Total Femur: T-Score: 1.1 Right Femoral Neck: T-Score: 0.8 1.148 g/sq cm Right Total Femur: T-Score: 1.2 INCIDENTAL FINDINGS: None. IMPRESSION: This is a summary page. Please refer to the complete detailed report found in the Imaging Section of the [facility] EMR. Normal bone mineral densities. Lumbar Spine: T-Score: 2.3 Left Femoral Neck: T-Score: 1.2 Left Total Femur: T-Score: 1.1 Right Femoral Neck: T-Score: 0.8 Right Total Femur: T-Score: 1.2 Statistical change: No significant change in BMD since the prior exam. FRAX FRACTURE RISK ASSESSMENT: (Only valid Between 40-89 Years Of Age) Risk factors: None. 10 Year Probability Of Fracture Major Osteoporotic: 4.8 % Hip: 0.1 % Comparison population: [place], Race: White A major osteoporotic fracture is defined as a fracture of the spine, forearm, hip or shoulder. Definitions: Normal: T-score above -1.0 Osteopenia T-score less than -1.0 and above -2.5 Osteoporosis: T-score <= -2.5 Follow-up Recommendations: Patients without high risk factors for osteoporosis T-score -1.0 to -1.5 - Consider repeat BMD in 5-10 years T-score -1.5 to - 2.0 - Consider repeat BMD in 3-5 years T-score -2.0 to - 2.5 - Consider repeat BMD every 2 years Patients on treatment for osteoporosis 1-2 years after initiation of treatment and every 2 years thereafter D[address] by Dr. Anthony Hagen MD DICTATION LOCATION: 1 Ervin Macdonald MD DIAGNOSTIC IMAGING ORDERABLE S Final Result * COLONOSCOPY REPORT (03/21/2014) us Abstract Provider GI PROCEDURE ORDERABLES Final Result [facility] INTERNAL MEDICINE [facility]# [id number] [address] [place] [address] from Last 3 Months or Most Recently Relevant to Health Maintenance Insurance [employer] PPO MCR Care Teams Manufacturing Quality Manager Relationship Specialty Start Date End Date Mike Hawthorne DO [address] [place] [address] PCP - General Internal Medicine 10/17/20
--- OUTSIDE RECORDS SUMMARY | 2024-09-05 08:36 | XMS_ITS | Encounter Summary ---
Author Organization [facility] Address [address] [place] [address] Care Team Providers Care Supervisor Claims Name Role Phone Mike Hawthorne DO Primary Care Provider [phone] Encounter Details Date Type Department Care Team (Late st Contact Info) Description 05/29/2005 Outpatient [facility] Primary Care [address] [place] [address] Karolina Dunbar MD NO ADDRESS ON FILE Social History Tobacco Use Types Packs/Day Years Used Date Smoking Tobacco: Never Assessed Comments Unknown Sex and Gender Information Value Date Recorded Sex Assigned at Female 01/24/2024 9:50 PM CDT Legal Sex Female 3:49 AM PARKING LOT SIGNALER Gender Identity Female 01/24/2024 9:50 PM CDT Sexual Orientation Not on file documented as of this encounter Plan of Treatment Not on file documented as of this encounter Visit Diagnoses Not on filedocumented in this encounter Care Teams Supervisor Claims Relationship Specialty Start Date End Date Mike Hawthorne DO [address] [facility] [address] [place] [address] PCP - General Internal Medicine 10/17/20 documented as of this encounter
--- OUTSIDE RECORDS SUMMARY | 2024-09-05 08:36 | XMS_ITS | Encounter Summary ---
Author Organization [facility] Address [address] [place] [address] Care Team Providers Care Enforcement Officer Name Role Phone Mike Hawthorne DO Primary Care Provider [phone] Encounter Details Date Type Department Care Team (Late st Contact Info) Description 06/24/2002 Outpatient Historical [facility] INVENTORY ASSOCIATE - [address] [address] Drake Zheng MD [address] [place] [address] Social History Tobacco Use Types Packs/Day Years Used Date Smoking Tobacco: Never Assessed Comments Unknown Sex and Gender Information Value Date Recorded Sex Assigned at Female 01/24/2024 9:50 PM CDT Legal Sex Female 3:49 AM PRECISION MARKET INSIGHTS Gender Identity Female 01/24/2024 9:50 PM CDT Sexual Orientation Not on file documented as of this encounter Plan of Treatment Not on file documented as of this encounter Visit Diagnoses Not on filedocumented in this encounter Care Teams Enforcement Officer Relationship Specialty Start Date End Date Mike Hawthorne DO [address] [facility] [address] [place] [address] PCP - General Internal Medicine 10/17/20 documented as of this encounter
--- OUTSIDE RECORDS SUMMARY | 2024-09-05 08:36 | XMS_ITS | Encounter Summary ---
Author Organization [facility] Address [address] [place] [address] Care Team Providers Care Delivery Professional Name Role Phone Mike Hawthorne DO Primary Care Provider [phone] Encounter Details Date Type Department Care Team (Late st Contact Info) Description 07/12/2002 Outpatient Historical [facility] Primary Care - [address] [place] [address] Ervin Macdonald MD [address] [facility] [address] [phone] Social History Tobacco Use Types Packs/Day Years Used Date Smoking Tobacco: Never Assessed Comments Unknown Sex and Gender Information Value Date Recorded Sex Assigned at Female 01/24/2024 9:50 PM CDT Legal Sex Female 3:49 AM PHARMACEUTICAL LABORATORY TECHNICIAN Gender Identity Female 01/24/2024 9:50 PM CDT Sexual Orientation Not on file documented as of this encounter Plan of Treatment Not on file documented as of this encounter Visit Diagnoses Not on filedocumented in this encounter Care Teams Delivery Professional Relationship Specialty Start Date End Date Mike Hawthorne DO [address] [facility] [address] [place] [address] PCP - General Internal Medicine 10/17/20 documented as of this encounter
--- OUTSIDE RECORDS SUMMARY | 2024-09-05 08:36 | XMS_ITS | Encounter Summary ---
Author Organization [facility] Address [address] [place] [address] Care Team Providers Care Silver Chaser Name Role Phone Mike Hawthorne DO Primary Care Provider [phone] Encounter Details Date Type Department Care Team (Late st Contact Info) Description 01/26/2006 Outpatient Historical [facility] Primary Care [address] [place] [address] Karolina Dunbar MD NO ADDRESS ON FILE Social History Tobacco Use Types Packs/Day Years Used Date Smoking Tobacco: Never Assessed Comments Unknown Sex and Gender Information Value Date Recorded Sex Assigned at Female 01/24/2024 9:50 PM CDT Legal Sex Female 3:49 AM CUSTOMER ASSISTANCE ASSOCIATE Gender Identity Female 01/24/2024 9:50 PM CDT Sexual Orientation Not on file documented as of this encounter Plan of Treatment Not on file documented as of this encounter Visit Diagnoses Not on filedocumented in this encounter Care Teams Silver Chaser Relationship Specialty Start Date End Date Mike Hawthorne DO [address] [facility] [address] [place] [address] PCP - General Internal Medicine 10/17/20 documented as of this encounter
--- OUTSIDE RECORDS SUMMARY | 2024-09-05 08:36 | XMS_ITS | Clinical Summary ---
Author Organization [facility] Care Team Providers Care Fulfillment Representative Name Role Phone Unavailable Primary Care Provider Unavailabl e Social History Tobacco Use Types Packs/Day Years Used Date Smoking Tobacco: Never Assessed Comments Unknown Sex and Gender Information Value Date Recorded Sex Assigned at Not on file Legal Sex Female 10:50 AM FUNERAL ASSISTANT Gender Identity Not on file Sexual Orientation Not on file Plan of Treatment Health Maintenance Due Date Last Done Comments Hepatitis C Virus (HCV) Screening 1950 TdaP Immunization 1950 Zoster Immunization (3 of 3) 11/28/2020 10/03/2020, 04/18/2015 DEXA Bone Density 06/22/2021 06/22/2019 Respiratory Syncytial Virus (RSV) Immunization (Adult) (1 - 1-dose 75+ series) 2023 Influenza Immunization (#1) 01/03/202401/03, 03/05/2017, 04/05/2016, Additional history exists SARS-COV-2 Immunization ( season) 2024 Colonoscopy High Risk Discontinued 03/21/2014 Colonoscopy Discontinued 03/21/2014 Colorectal Cancer Screening Discontinued Pneumococcal Immunization (50+ years) Completed 05/08/2017, 03/12/2015 Pneumococcal Immunization Combined Discontinued 05/08/2017, 03/12/2015 Mammogram Discontinued 06/23/2023, 0811/2019, 06/12/2017, Additional history exists Cologuard Discontinued Hepatitis B Immunization Aged Out No longer eligible based on patient's age to complete this topic Immunochemical Fecal Occult Blood Discontinued Meningococcal Immunization (ACWY) Aged Out No longer eligible based on patient's age to complete this topic Rotavirus Immunization Aged Out No lo nger eligible based on patient's age to complete this topic
--- OUTSIDE RECORDS SUMMARY | 2024-09-05 08:36 | XMS_ITS | Encounter Summary ---
Author Organization [facility] Address [address] [place] [address] Care Team Providers Care Enrichment Teacher Name Role Phone Mike Hawthorne DO Primary Care Provider [phone] Encounter Details Date Type Department Care Team (Late st Contact Info) Description 10/01/2000 Outpatient Historical [facility] DELIVERY DEPARTMENT SUPERVISOR - Medical [address] [address] Drake Zheng MD [address] [place] [phone] Social History Tobacco Use Types Packs/Day Years Used Date Smoking Tobacco: Never Assessed Comments Unknown Sex and Gender Information Value Date Recorded Sex Assigned at Female 01/24/2024 9:50 PM CDT Legal Sex Female 3:49 AM FIELD ACCOUNT MANAGER Gender Identity Female 01/24/2024 9:50 PM CDT Sexual Orientation Not on file documented as of this encounter Plan of Treatment Not on file documented as of this encounter Visit Diagnoses Not on filedocumented in this encounter Care Teams Enrichment Teacher Relationship Specialty Start Date End Date Mike Hawthorne DO [address] [facility] [address] [place] [phone] PCP - General Internal Medicine 10/17/20 documented as of this encounter
--- OUTSIDE RECORDS SUMMARY | 2024-09-05 08:36 | XMS_ITS | Encounter Summary ---
Author Organization [facility] Address [address] [place] [address] Care Team Providers Care Pockets And Pieces Necktie Operator Name Role Phone Mike Hawthorne DO Primary Care Provider [phone] Encounter Details Date Type Department Care Team (Late st Contact Info) Description 06/25/2005 Outpatient Historical [facility] [address] [place], [place] [id number] Daron Villar MD [address] [place] [address] Social History Tobacco Use Types Packs/Day Years Used Date Smoking Tobacco: Never Assessed Comments Unknown Sex and Gender Information Value Date Recorded Sex Assigned at Female 01/24/2024 9:50 PM CDT Legal Sex Female 3:49 AM POLICE ARTIST Gender Identity Female 01/24/2024 9:50 PM CDT Sexual Orientation Not on file documented as of this encounter Plan of Treatment Not on file documented as of this encounter Visit Diagnoses Not on filedocumented in this encounter Care Teams Pockets And Pieces Necktie Operator Relationship Specialty Start Date End Date Mike Hawthorne DO [address] [facility] [address] [place] [address] PCP - General Internal Medicine 10/17/20 documented as of this encounter
--- OUTSIDE RECORDS SUMMARY | 2024-09-05 08:36 | XMS_ITS | Encounter Summary ---
Author Organization [facility] Address [address] [place] [address] Care Team Providers Care Anatomic Pathology Manager Name Role Phone Mike Hawthorne DO Primary Care Provider [phone] Encounter Details Date Type Department Care Team (Late st Contact Info) Description 08/30/2004 Outpatient Historical [facility] REALTY LOAN SPECIALIST - [address] [address] Drake Zheng MD [address] [place] [phone] Social History Tobacco Use Types Packs/Day Years Used Date Smoking Tobacco: Never Assessed Comments Unknown Sex and Gender Information Value Date Recorded Sex Assigned at Female 01/24/2024 9:50 PM CDT Legal Sex Female 3:49 AM HOME SCHOOL TEACHER Gender Identity Female 01/24/2024 9:50 PM CDT Sexual Orientation Not on file documented as of this encounter Plan of Treatment Not on file documented as of this encounter Visit Diagnoses Not on filedocumented in this encounter Care Teams Anatomic Pathology Manager Relationship Specialty Start Date End Date Mike Hawthorne DO [address] [facility] [address] [place] [address] PCP - General Internal Medicine 10/17/20 documented as of this encounter
--- OUTSIDE RECORDS SUMMARY | 2024-09-05 08:36 | XMS_ITS | Encounter Summary ---
Author Organization [facility] Address [address] [place] [address] Care Team Providers Care Assistant Name Role Phone Mike Hawthorne DO Primary Care Provider [phone] Encounter Details Date Type Department Care Team (Late st Contact Info) Description 02/25/2002 Outpatient Historical [facility] Support Serv. ([facility]) [address] [place] [address] Salvador Patel MD NO ADDRESS ON FILE Social History Tobacco Use Types Packs/Day Years Used Date Smoking Tobacco: Never Assessed Comments Unknown Sex and Gender Information Value Date Recorded Sex Assigned at Female 01/24/2024 9:50 PM CDT Legal Sex Female 3:49 AM PRODUCTION ESTIMATOR Gender Identity Female 01/24/2024 9:50 PM CDT Sexual Orientation Not on file documented as of this encounter Plan of Treatment Not on file documented as of this encounter Visit Diagnoses Not on filedocumented in this encounter Care Teams Assistant Relationship Specialty Start Date End Date Mike Hawthorne DO [address] [facility] [address] [place] [address] PCP - General Internal Medicine 10/17/20 documented as of this encounter
--- OUTSIDE RECORDS SUMMARY | 2024-09-05 08:36 | XMS_ITS | Encounter Summary ---
Author Organization [facility] Address [address] [place] [address] Care Team Providers Care Veterinary Technology Instructor Name Role Phone Mike Hawthorne DO Primary Care Provider [phone] Encounter Details Date Type Department Care Team (Late st Contact Info) Description 07/13/2003 Outpatient Historical [facility] CAD LIBRARIAN - [address] [address] Drake Zheng MD [address] [place] [phone] Social History Tobacco Use Types Packs/Day Years Used Date Smoking Tobacco: Never Assessed Comments Unknown Sex and Gender Information Value Date Recorded Sex Assigned at Female 01/24/2024 9:50 PM CDT Legal Sex Female 3:49 AM DATA ANALYSIS ASSISTANT Gender Identity Female 01/24/2024 9:50 PM CDT Sexual Orientation Not on file documented as of this encounter Plan of Treatment Not on file documented as of this encounter Visit Diagnoses Not on filedocumented in this encounter Care Teams Veterinary Technology Instructor Relationship Specialty Start Date End Date Mike Hawthorne DO [address] [facility] [address] [place] [phone] PCP - General Internal Medicine 10/17/20 documented as of this encounter
--- OUTSIDE RECORDS SUMMARY | 2024-09-05 08:36 | XMS_ITS | Encounter Summary ---
Author Organization [facility] Address 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) Social History Tobacco Use Types Packs/Day Years Used Date Smoking Tobacco: Never Assessed Comments Unknown Sex and Gender Information Value Date Recorded Sex Assigned at Female 01/24/2024 9:50 PM CDT 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 [address] [place] [address] PCP - General Internal Medicine 10/17/20 documented as of this encounter
--- OUTSIDE RECORDS SUMMARY | 2024-09-05 08:36 | XMS_ITS | Encounter Summary ---
Author Organization [facility] Address 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 [address] [place] [address] PCP - General Internal Medicine 10/17/20 documented as of this encounter
--- OUTSIDE RECORDS SUMMARY | 2024-09-05 08:36 | XMS_ITS | Encounter Summary ---
Author Organization [facility] Address 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
--- OUTSIDE RECORDS SUMMARY | 2024-09-05 08:36 | XMS_ITS | Data Portability ---
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 joint [id number] 1104041 M25.511 Nontraumat ic complete rupture of rotator cuff of right shoulder [id number] 774912 M75.351 [id number] Israel Sevilla MD [facility] [address] [place] [address] 08/26/2024 10:55:05 08/26/2024 11:46:34 Pain of left shoulder joint [id number] 2234934 M25.512 Full thick ness rotator cuff tear 655500619 M75.122 Health Concerns Section Related Observation LastModified by Organization Detai ls LastModified Time None Recorded Concern Status LastModified by Organization Details LastModified Time None Recorded Advance Directives Directive None Recorded Payers Encounter Date Sequence Insurance Name Policy Number Policy Bender Covered Member ID Bender Member ID Guarantor Name 02/09/2024 1 [employer] (MEDICARE REPLACEMENT PPO) [id number] Obdulio Briseno [id number] Obdulio Briseno 02/24/2024 1 [employer] (MEDICARE REPLACEMENT PPO) [id number] Obdulio Briseno [id number] Obdulio Briseno 05/17/2024 1 [employer] (MEDICARE REPLACEMENT PPO) [id number] Obdulio Briseno [id number] Obdulio Briseno 08/09/2024 1 [employer] (MEDICARE REPLACEMENT PPO) [id number] Obdulio Briseno [id number] Obdulio Briseno 08/26/2024 1 [employer] (MEDICARE REPLACEMENT PPO) [id number] Obdulio Briseno [id number] Obdulio Briseno Notes Date Note Type Note Provider Name and Address Organization Details Recorded Time 02/09/2024 text/html Patient returns with right shoulder pain. She states she has chronic aching pain and weakness in the shoulder she is seen our nurse practitioner here previously she states her last shot of cortisone was last September. She sees a salon leader she is on prednisone currently also uses Voltaren gel on her shoulder states really it does not help too much. She comes in today requesting a repeat cortisone injection denies any new trauma or injury no new symptoms other than just some worsening pain recently. She states today it is about a 9 on a scale of 1-10. ALYSA Hoskins, [address], [place], [address], [facility] [employer] [facility] 02/09/2024 14:31:27 05/17/2024 text/html The patient retu rns complaining of left knee pain. We have not seen her for this for little over 3 years. She has aching pain mostly medially she thought maybe she had twisted her knee or overdone it a little bit recently. For the past month or so she has been having quite a bit of pain about a 9 on a scale of 1-10 by her report. It keeps her from standing or walking for long periods. She states she is walking with a limp and despite conservative measures on her own at home her symptoms continue. She has had no specific trauma or injury just thought maybe she overdid it or walked awkwardly. She does use a cane in the opposite hand for support to help with the pain in her knee but it has been more persistent. She states shot of cortisone 3 years ago gave her pretty good relief she is wondering about repeating that today. She comes in today for new evaluation treatment of left knee pain as described she has known moderately severe primary osteoarthritis of the left knee joint.The patient has previous past medical history was reviewed with her in detail today she denies any recent changes. ALYSA Hoskins [address] [facility] [address], [place], [address], [facility] [employer] [facility] 05/17/2024 15:11:20 08/09/2024 text/html The patient retu rns complaining of right shoulder pain. Last February she had a shot of cortisone which gave her full excellent relief. She does have chronic weakness in the shoulder due to what appears to be a large rotator cuff tendon tear. She can still raise her arm up against gravity but really can not do anything against resistance she is quite weak. Previous x-rays show superior subluxation of the humeral head articulating with the undersurface of the acromion. Recently her shoulder started to flare up again she is wondering about a cortisone injection. She denies any new trauma or injury states her pain is about a 7 on a scale of 1-10 today. She has aching pain that radiates into the upper arm denies any other new symptoms other than recurrence of her pain. She has has gone through a course of physical therapy for her shoulder previously she knows what to do and we will keep up with those exercises. ALYSA Hoskins [address], [facility] [address], [place], [address], [employer] [facility] [email or web address] 08/09/2024 14:21:01 08/26/2024 text/html The patient retu rns with a new problem today. She is complaining of severe weakness and some discomfort in the left shoulder. She has pain about a 5 on a scale of 1-10. Denies any trauma or injury. She states about 2 weeks ago she started noticing she was having a lot of weakness in the left shoulder unable to raise her arm very much at all. She states it feels weak in all planes she can not reach up to the top of her head can not reach forward. She has pain in the left shoulder joint itself denies any radicular pain down the arm no numbness or tingling no weakness below the shoulder. She has full painless neck motion no radicular pain. 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 X-rays of the right shoulder previously show superior subluxation of the humeral head fairly severe in nature. New x-rays today of the left shoulder do not show superior subluxation there is some minor degenerative changes otherwise unremarkable. She comes in today for initial evaluation and treatment. Previous medical history is reviewed with her in detail today. She denies any significant changes in her medical history other than with her left shoulder. ALYSA Hoskins [address], [address], [place], [address], [employer] 08/26/2024 11:44:47 OBGyn Episode No OBEpisode recorded.
--- OUTSIDE RECORDS SUMMARY | 2024-09-05 08:36 | XMS_ITS | Encounter Summary ---
Author Organization [facility] Address [address] [place] [address] Care Team Providers Care Middleware Administrator Name Role Phone Mike Hawthorne DO Primary Care Provider [phone] Encounter Details Date Type Department Care Team (Latest Contact Info) Description 01/26/2006 Outpatient Historical [facility] Karolina Dunbar MD NO ADDRESS ON FILE Cervical Spondylosis without Myelopathy (Primary Dx) Social History Tobacco Use Types Packs/Day Years Used Date Smoking Tobacco: Never Assessed Comments Unknown Sex and Gender Information Value Date Recorded Sex Assigned at Female 01/24/2024 9:50 PM CDT Legal Sex Female 3:49 AM 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
--- OUTSIDE RECORDS SUMMARY | 2024-09-05 08:36 | XMS_ITS | Encounter Summary ---
Author Organization [facility] Address [address] [place] [address] Care Team Providers Care Evs Tech Name Role Phone Mike Hawthorne DO Primary Care Provider [phone] Encounter Details Date Type Department Care Team (Late st Contact Info) Description 07/01/2001 Outpatient Historical [facility] DIRECTOR OF MANAGED SERVICES - Medical [address] [address] Drake Zheng MD [address] [place] [address] Social History Tobacco Use Types Packs/Day Years Used Date Smoking Tobacco: Never Assessed Comments Unknown Sex and Gender Information Value Date Recorded Sex Assigned at Female 01/24/2024 9:50 PM CDT Legal Sex Female 3:49 AM CULINARY INSTRUCTOR Gender Identity Female 01/24/2024 9:50 PM CDT Sexual Orientation Not on file documented as of this encounter Plan of Treatment Not on file documented as of this encounter Visit Diagnoses Not on filedocumented in this encounter Care Teams Evs Tech Relationship Specialty Start Date End Date Mike Hawthorne DO [address] [facility] [address] [place] [address] PCP - General Internal Medicine 10/17/20 documented as of this encounter
--- OUTSIDE RECORDS SUMMARY | 2024-09-05 08:36 | XMS_ITS | Encounter Summary ---
Author Organization [facility] Address [address] [place] [address] Care Team Providers Care Prep Manager Name Role Phone Mike Hawthorne DO Primary Care Provider [phone] Encounter Details Date Type Department Care Team (Late st Contact Info) Description 05/05/2006 Outpatient Historical [facility] Primary Care [address] [place] [address] Karolina Dunbar MD NO ADDRESS ON FILE Social History Tobacco Use Types Packs/Day Years Used Date Smoking Tobacco: Never Assessed Comments Unknown Sex and Gender Information Value Date Recorded Sex Assigned at Female 01/24/2024 9:50 PM CDT Legal Sex Female 3:49 AM RN TELE Gender Identity Female 01/24/2024 9:50 PM CDT Sexual Orientation Not on file documented as of this encounter Plan of Treatment Not on file documented as of this encounter Visit Diagnoses Not on filedocumented in this encounter Care Teams Prep Manager Relationship Specialty Start Date End Date Mike Hawthorne DO [address] [facility] [address] [place] [address] PCP - General Internal Medicine 10/17/20 documented as of this encounter
--- OUTSIDE RECORDS SUMMARY | 2024-09-05 08:36 | XMS_ITS | Encounter Summary ---
Author Organization [facility] Address [address] [place] [address] Care Team Providers Care Shade Maker Name Role Phone Mike Hawthorne DO Primary Care Provider [phone] Encounter Details Date Type Department Care Team (Late st Contact Info) Description 03/07/2004 Outpatient Historical [facility] Primary Care - [address] [place] [address] Ervin Macdonald MD [address] [facility] [address] [address] Social History Tobacco Use Types Packs/Day Years Used Date Smoking Tobacco: Never Assessed Comments Unknown Sex and Gender Information Value Date Recorded Sex Assigned at Female 01/24/2024 9:50 PM CDT Legal Sex Female 3:49 AM 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
--- OUTSIDE RECORDS SUMMARY | 2024-09-05 08:36 | XMS_ITS | Encounter Summary ---
Author Organization [employer] Address [address] [place] [address] Care Team Providers Care Credit Card Clerk Name Role Phone Mike Hawthorne DO Primary Care Provider [phone] Encounter Details Date Type Department Care Team (Latest Contact Info) Description 03/03/2002 Inpatient Historical [facility] Drake Zheng MD [address] [place] [address] PROLAPSE OF VAGINAL WALL (Primary Dx) Social History Tobacco Use Types Packs/Day Years Used Date Smoking Tobacco: Never Assessed Comments Unknown Sex and Gender Information Value Date Recorded Sex Assigned at Female 01/24/2024 9:50 PM CDT Legal Sex Female 3:49 AM CROP OR GRAIN 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
--- OUTSIDE RECORDS SUMMARY | 2024-09-05 08:36 | XMS_ITS | Encounter Summary ---
Author Organization [facility] Address [address] [place] [address] Care Team Providers Care Reading Aide Name Role Phone Mike Hawthorne DO Primary Care Provider [phone] Encounter Details Date Type Department Care Team (Late st Contact Info) Description 08/13/2001 Outpatient Historical [facility] SCREEN HANDLER - Medical [address] [address] Drake Zheng MD [address] [place] [address] Social History Tobacco Use Types Packs/Day Years Used Date Smoking Tobacco: Never Assessed Comments Unknown Sex and Gender Information Value Date Recorded Sex Assigned at Female 01/24/2024 9:50 PM CDT Legal Sex Female 3:49 AM WELLNESS RN Gender Identity Female 01/24/2024 9:50 PM CDT Sexual Orientation Not on file documented as of this encounter Plan of Treatment Not on file documented as of this encounter Visit Diagnoses Not on filedocumented in this encounter Care Teams Reading Aide Relationship Specialty Start Date End Date Mike Hawthorne DO [address] [facility] [address] [place] [address] PCP - General Internal Medicine 10/17/20 documented as of this encounter
--- OUTSIDE RECORDS SUMMARY | 2024-09-05 08:36 | XMS_ITS | Encounter Summary ---
Author Organization [facility] Address [address] [place] [address] Care Team Providers Care Relief Pharmacist Name Role Phone Mike Hawthorne DO Primary Care Provider [phone] Encounter Details Date Type Department Care Team (Late st Contact Info) Description 02/06/2003 Outpatient Historical [facility] Primary Care - [address] [place] [address] Ervin Macdonald MD [address] [facility] [address] [phone] Social History Tobacco Use Types Packs/Day Years Used Date Smoking Tobacco: Never Assessed Comments Unknown Sex and Gender Information Value Date Recorded Sex Assigned at Female 01/24/2024 9:50 PM CDT Legal Sex Female 3:49 AM CIVIL PROJECT ENGINEER Gender Identity Female 01/24/2024 9:50 PM CDT Sexual Orientation Not on file documented as of this encounter Plan of Treatment Not on file documented as of this encounter Visit Diagnoses Not on filedocumented in this encounter Care Teams Relief Pharmacist Relationship Specialty Start Date End Date Mike Hawthorne DO [address] [facility] [address] [place] [address] PCP - General Internal Medicine 10/17/20 documented as of this encounter
--- OUTSIDE RECORDS SUMMARY | 2024-09-05 08:36 | XMS_ITS | Encounter Summary ---
Author Organization [facility] Address [address] [place] [address] Care Team Providers Care Energy Derivatives Trader Name Role Phone Mike Hawthorne DO Primary Care Provider Encounter Details Date Type Department Care Team (Late st Contact Info) Description 01/26/2004 Outpatient Historical [facility] Primary Care - [address] [place] [address] Ervin Macdonald MD [address] [facility] [address] [address] Social History Tobacco Use Types Packs/Day Years Used Date Smoking Tobacco: Never Assessed Comments Unknown Sex and Gender Information Value Date Recorded Sex Assigned at Female 01/24/2024 9:50 PM CDT Legal Sex Female 3:49 AM BOAT LOADER HELPER Gender Identity Female 01/24/2024 9:50 PM CDT Sexual Orientation Not on file documented as of this encounter Plan of Treatment Not on file documented as of this encounter Visit Diagnoses Not on filedocumented in this encounter Care Teams Energy Derivatives Trader Relationship Specialty Start Date End Date Mike Hawthorne DO [address] [facility] [address] [place] [address] PCP - General Internal Medicine 10/17/20 documented as of this encounter
--- OUTSIDE RECORDS SUMMARY | 2024-09-05 08:36 | XMS_ITS | Encounter Summary ---
Author Organization [facility] Address [address] [place] [address] Care Team Providers Care Employee Development Specialist Name Role Phone Mike Hawthorne DO Primary Care Provider [phone] Encounter Details Date Type Department Care Team (Late st Contact Info) Description 06/09/2001 Outpatient Historical [facility] INCLUSION INTERNSHIP - Medical [address] [address] Drake Zheng MD [address] [place] [address] Social History Tobacco Use Types Packs/Day Years Used Date Smoking Tobacco: Never Assessed Comments Unknown Sex and Gender Information Value Date Recorded Sex Assigned at Female 01/24/2024 9:50 PM CDT Legal Sex Female 3:49 AM BREAKFAST HOSTESS Gender Identity Female 01/24/2024 9:50 PM CDT Sexual Orientation Not on file documented as of this encounter Plan of Treatment Not on file documented as of this encounter Visit Diagnoses Not on filedocumented in this encounter Care Teams Employee Development Specialist Relationship Specialty Start Date End Date Mike Hawthorne DO [address] [facility] [address] [place] [address] PCP - General Internal Medicine 10/17/20 documented as of this encounter
--- OUTSIDE RECORDS SUMMARY | 2024-09-05 08:36 | XMS_ITS | Encounter Summary ---
Author Organization [facility] Address [address] [place] [address] Care Team Providers Care Senior Unix Administrator Name Role Phone Mike Hawthorne DO Primary Care Provider [phone] Encounter Details Date Type Department Care Team (Late st Contact Info) Description 03/03/2002 Outpatient Historical [facility] HOT AIR FURNACE INSTALLER REPAIRER - [address] [address] Drake Zheng MD [address] [place] [address] Social History Tobacco Use Types Packs/Day Years Used Date Smoking Tobacco: Never Assessed Comments Unknown Sex and Gender Information Value Date Recorded Sex Assigned at Female 01/24/2024 9:50 PM CDT Legal Sex Female 3:49 AM POWDER HAND Gender Identity Female 01/24/2024 9:50 PM CDT Sexual Orientation Not on file documented as of this encounter Plan of Treatment Not on file documented as of this encounter Visit Diagnoses Not on filedocumented in this encounter Care Teams Senior Unix Administrator Relationship Specialty Start Date End Date Mike Hawthorne DO [address] [facility] [address] [place] [address] PCP - General Internal Medicine 10/17/20 documented as of this encounter
--- OUTSIDE RECORDS SUMMARY | 2024-09-05 08:36 | XMS_ITS | Encounter Summary ---
Author Organization [facility] Address [address] [place] [address] Care Team Providers Care Connie Cleaner Name Role Phone Mike Hawthorne DO Primary Care Provider [phone] Encounter Details Date Type Department Care Team (Latest Contact Info) Description 05/29/2005 Outpatient Historical [facility] Karolina Dnubar MD NO ADDRESS ON FILE CHRONIC LIVER DIS NEC (Primary Dx) Social History Tobacco Use Types Packs/Day Years Used Date Smoking Tobacco: Never Assessed Comments Unknown Sex and Gender Information Value Date Recorded Sex Assigned at Female 01/24/2024 9:50 PM CDT Legal Sex Female 3:49 AM MANAGEMENT SPECIALIST Gender Identity Female 01/24/2024 9:50 PM CDT Sexual Orientation Not on file documented as of this encounter Plan of Treatment Not on file documented as of this encounter Visit Diagnoses Diagnosis Other chronic nonalcoholic liver disease- Primary documented in this encounter Care Teams Connie Cleaner Relationship Specialty Start Date End Date Mike Hawthorne DO [address] [facility] [address] [place] [address] PCP - General Internal Medicine 10/17/20 documented as of this encounter
--- OUTSIDE RECORDS SUMMARY | 2024-09-05 08:36 | XMS_ITS | Encounter Summary ---
Author Organization [facility] Address [address] [place] [address] Care Team Providers Care Telemarketer Name Role Phone Mike Hawthorne DO Primary Care Provider [phone] Encounter Details Date Type Department Care Team (Late st Contact Info) Description 07/16/2004 Outpatient Historical [facility] [place] Primary Care - [address] [place] [address] Ervin Macdonald MD [address] [facility] [address] [id number] Social History Tobacco Use Types Packs/Day Years Used Date Smoking Tobacco: Never Assessed Comments Unknown Sex and Gender Information Value Date Recorded Sex Assigned at Female 01/24/2024 9:50 PM CDT Legal Sex Female 3:49 AM LINOTYPE WORKER Gender Identity Female 01/24/2024 9:50 PM CDT Sexual Orientation Not on file documented as of this encounter Plan of Treatment Not on file documented as of this encounter Visit Diagnoses Not on filedocumented in this encounter Care Teams Telemarketer Relationship Specialty Start Date End Date Mike Hawthorne DO [address] [facility] [address] [place] [address] PCP - General Internal Medicine 10/17/20 documented as of this encounter
--- OUTSIDE RECORDS SUMMARY | 2024-09-05 08:37 | XMS_ITS | Encounter Summary ---
Author Organization [facility] Address [address] [place] [address] Care Team Providers Care Gunner'S Mate M Name Role Phone Mike Hawthorne DO Primary Care Provider [phone] Encounter Details Date Type Department Care Team (Late st Contact Info) Description 07/02/2007 Outpatient [facility] Primary Care [address] [place] [address] Karolina Dunbar MD NO ADDRESS ON FILE Social History Tobacco Use Types Packs/Day Years Used Date Smoking Tobacco: Never Assessed Comments Unknown Sex and Gender Information Value Date Recorded Sex Assigned at Female 01/24/2024 9:50 PM CDT Legal Sex Female 3:49 AM CORPORATE LEGAL INTERN Gender Identity Female 01/24/2024 9:50 PM CDT Sexual Orientation Not on file documented as of this encounter Plan of Treatment Not on file documented as of this encounter Visit Diagnoses Not on filedocumented in this encounter Care Teams Gunner'S Mate M Relationship Specialty Start Date End Date Mike Hawthorne DO [address] [facility] [address] [place] [address] PCP - General Internal Medicine 10/17/20 documented as of this encounter
--- OUTSIDE RECORDS SUMMARY | 2024-09-05 08:37 | XMS_ITS | Encounter Summary ---
Author Organization [facility] Address [address] [place] [address] Care Team Providers Care Printing Sales Representative Name Role Phone Mike Hawthorne DO Primary Care Provider [phone] Encounter Details Date Type Department Care Team (Late st Contact Info) Description 11/13/2005 Outpatient Historical [facility] [address] [place], [place] [id number] Daron Villar MD [address] [place] [address] Social History Tobacco Use Types Packs/Day Years Used Date Smoking Tobacco: Never Assessed Comments Unknown Sex and Gender Information Value Date Recorded Sex Assigned at Female 01/24/2024 9:50 PM CDT Legal Sex Female 3:49 AM TELECOMMUNICATOR Gender Identity Female 01/24/2024 9:50 PM CDT Sexual Orientation Not on file documented as of this encounter Plan of Treatment Not on file documented as of this encounter Visit Diagnoses Not on filedocumented in this encounter Care Teams Printing Sales Representative Relationship Specialty Start Date End Date Mike Hawthorne DO [address] [facility] [address] [place] [address] PCP - General Internal Medicine 10/17/20 documented as of this encounter
--- OUTSIDE RECORDS SUMMARY | 2024-09-05 08:37 | XMS_ITS | Encounter Summary ---
Author Organization [facility] Address [address] [place] [address] Care Team Providers Care School Transportation Supervisor Name Role Phone Mike Hawthorne DO Primary Care Provider [phone] Encounter Details Date Type Department Care Team (Late st Contact Info) Description 02/10/2007 Outpatient Historical [facility] ANILINE PRESS WORKER - [address] [address] Drake Zheng MD [address] [place] [phone] Social History Tobacco Use Types Packs/Day Years Used Date Smoking Tobacco: Never Assessed Comments Unknown Sex and Gender Information Value Date Recorded Sex Assigned at Female 01/24/2024 9:50 PM CDT Legal Sex Female 3:49 AM CERTIFIED RECREATIONAL THERAPIST Gender Identity Female 01/24/2024 9:50 PM CDT Sexual Orientation Not on file documented as of this encounter Plan of Treatment Not on file documented as of this encounter Visit Diagnoses Not on filedocumented in this encounter Care Teams School Transportation Supervisor Relationship Specialty Start Date End Date Mike Hawthorne DO [address] [facility] [address] [place] [address] PCP - General Internal Medicine 10/17/20 documented as of this encounter
--- OUTSIDE RECORDS SUMMARY | 2024-09-05 08:37 | XMS_ITS | Encounter Summary ---
Author Organization [facility] Address [address] [place] [address] Care Team Providers Care Bet Taker Name Role Phone Mike Hawthorne DO Primary Care Provider [phone] Encounter Details Date Type Department Care Team (Latest Contact Info) Description 05/26/2008 Outpatient Historical [facility] Jamie Garza MD [address] [place] [phone] Other Screening Mammogram Social History Tobacco Use Types Packs/Day Years Used Date Smoking Tobacco: Never Alcohol Use Standard Drinks/Week Comments Not Asked 0 (1 standard drink = 0.6 oz pur e alcohol) Comments No Sex and Gender Information Value Date Recorded Sex Assigned at Female 01/24/2024 9:50 PM CDT Legal Sex Female 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 Gender Identity Female 01/24/2024 9:50 PM CDT Sexual Orientation Not on file documented as of this encounter Plan of Treatment Not on file documented as of this encounter Procedures Procedure Name Priority Date/Time Associated Diagnosis Comments MAMMO SCREEN BILAT W OR WO CAD Routine 05/26/2008 1:02 PM HAT STOCK LAMINATING MACHINE OPERATOR documented in this encounter Results * MAMMO DIGITAL SCREEN BILAT (05/26/2008 1:02 PM HAT STOCK LAMINATING MACHINE OPERATOR) Anatomical Region Laterality Modality Breast Bilateral Other 05/26/2008 1:02 PM HAT STOCK LAMINATING MACHINE OPERATOR Narrative 05/29/2008 1:38 PM HAT STOCK LAMINATING MACHINE OPERATOR [address] [address] Admit Date: 05/26/2008 OBDULIO BRISENO Sex: F Admit Prov: JAMIE GARZA Date: 1950 Primary Care Prov: AYDIN CHARLES CMRN: [id number] [id number] Ordering Prov: JAMIE GARZA Accession Number: [id number] Interpretation BILATERAL FULL FIELD DIGITAL SCREENING MAMMOGRAM WITH CAD. Date: 05/26/08 History: Routine Screening. Technique: Full field digital craniocaudal and mediolateral oblique projections of both breasts were obtained. Computer aided diagnosis was performed. Comparison: 02/2007, 12/2005 Breast Parenchymal Composition: Scattered fibroglandular densities. Findings: No suspicious mass, suspicious microcalcifications, or architectural distortion in either breast is identified. Since the prior study, there has been no significant interval change. The computer aided diagnosis detects no significant abnormality. Overall Assessment: BI-RADS category 1: Negative. Recommendation: Annual mammography is recommended. Assessment BIRADS: 1-Negative Recommendation: Normal interval follow-up Dictated by: BROOKLYNN ARRIETA Electronically signed by: BROOKLYNN ARRIETA 05/29/2008 13:36 Transcribed: 05/29/2008 11:15 AMK Procedure Note Brooklynn Arrieta - 05/29/[address] [address] Admit Date: 05/26/2008 OBDULIO BRISENO Sex: F Admit Prov: JAMIE GARZA Date: 1950 Primary Care Prov: AYDIN CHARELS CMRN: [id number] Room: [facility] SSN: [id number] IMAGING SERVICES Ordering Prov: JAMIE GARZA Interpretation BILATERAL FULL FIELD DIGITAL SCREENING MAMMOGRAM WITH CAD. Date: 05/26/08 History: Routine Screening. Technique: Full field digital craniocaudal and mediolateral oblique projections of both breasts were obtained. Computer aided diagnosiswas performed. Comparison: 02/2007, 12/2005 Breast Parenchymal Composition: Scattered fibroglandular densities. Findings: No suspicious mass, suspicious microcalcifications, or architectural distortion in either breast is identified. Since theprior study, there has been no significant interval change. The computeraided diagnosis detects no significant abnormality. Overall Assessment: BI-RADS category 1: Negative. Recommendation: Annual mammography is recommended. Assessment BIRADS: 1-Negative Recommendation: Normal interval follow-up Dictated by: BROOKLYNN ARRIETA Electronically signed by: BROOKLYNN ARRIETA 05/29/2008 13:36 Transcribed: 05/29/2008 11:15 AMK Jamie Garza MD MAMMO ORDERABLES Final Result documented in this encounter Visit Diagnoses Diagnosis Other screening mammogram documented in this encounter Care Teams Bet Taker Relationship Specialty Start Date End Date Mike Hawthorne DO [address] [facility] [address] [place] [address] PCP - General Internal Medicine 10/17/20 documented as of this encounter
--- OUTSIDE RECORDS SUMMARY | 2024-09-05 08:37 | XMS_ITS | Encounter Summary ---
Author Organization [facility] Address 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
--- OUTSIDE RECORDS SUMMARY | 2024-09-05 08:37 | XMS_ITS | Encounter Summary ---
Author Organization [facility] Address [address] [place] [address] Care Team Providers Care Process Safety Management Engineer Name Role Phone Mike Hawthorne DO Primary Care Provider [phone] Encounter Details Date Type Department Care Team (Late st Contact Info) Description 02/10/[address] 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
--- OUTSIDE RECORDS SUMMARY | 2024-09-05 08:37 | XMS_ITS | Encounter Summary ---
Author Organization [employer] [facility] Address [address] [place] [address] Care Team Providers Care Recruiting Administrator Name Role Phone Mike Hawthorne DO Primary Care Provider [phone] Encounter Details Date Type Department Care Team (Latest Contact Info) Description 11/13/2005 Outpatient Historical [facility] Karolina Dunbar MD NO ADDRESS ON FILE Osteoarth NOS-Ankle (Primary Dx) Social History Tobacco Use Types Packs/Day Years Used Date Smoking Tobacco: Never Assessed Comments Unknown Sex and Gender Information Value Date Recorded Sex Assigned at Female 01/24/2024 9:50 PM CDT Legal Sex Female 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
--- OUTSIDE RECORDS SUMMARY | 2024-09-05 08:37 | XMS_ITS | Encounter Summary ---
Author Organization [facility] Address [address] [place] [address] Care Team Providers Care Grievance And Appeals Coordinator Name Role Phone Mike Hawthorne DO Primary Care Provider [phone] Encounter Details Date Type Department Care Team (Late st Contact Info) Description 12/30/2005 Outpatient [facility] Primary Care [address] [place] [address] Karolina Dunbar MD NO ADDRESS ON FILE Social History Tobacco Use Types Packs/Day Years Used Date Smoking Tobacco: Never Assessed Comments Unknown Sex and Gender Information Value Date Recorded Sex Assigned at Female 01/24/2024 9:50 PM CDT Legal 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
--- OUTSIDE RECORDS SUMMARY | 2024-09-05 08:37 | XMS_ITS | Encounter Summary ---
Author Organization [facility] Address [address] [place] [address] Care Team Providers Care Chairman Of The Board Name Role Phone Mike Hawthorne DO Primary Care Provider [phone] Encounter Details Date Type Department Care Team (Latest Contact Info) Description 12/29/2006 Outpatient Historical [facility] Karolina Dunbar MD NO ADDRESS ON FILE Essential Hypertension, Benign (Primary Dx) Social History Tobacco Use Types Packs/Day Years Used Date Smoking Tobacco: Never Assessed Comments Unknown Sex and Gender Information Value Date Recorded Sex Assigned at Female 01/24/2024 9:50 PM CDT Legal Sex Female 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 Gender Identity Female 01/24/2024 9:50 PM CDT Sexual Orientation Not on file documented as of this encounter Plan of Treatment Not on file documented as of this encounter Procedures Procedure Name Priority Date/Time Associated Diagnosis Comments LIPID PANEL Routine 12/29/2006 11:05 AM CDT COMPREHENSIVE METABOLIC PANEL Routine 12/29/2006 11:05 AM CDT documented in this encounter Results * LIPID PANEL (12/29/2006 11:05 AM CDT) CHOLESTEROL 176 100 - 199 mg/dL INTERFACE SYSTEM TRIGLYCERIDE 117 10 - 149 mg/dL INTERFACE SYSTEM HDL 59 40 - 59 mg/dL INTERFACE SYSTEM CHOL/HDL RATIO 3.0 2.0 - 5.0 INTER FACE SYSTEM LDL CALCULATED 94 <=99 mg/dL INTERFACE SYSTEM LIPID PANEL COMMENT See Below INTERFACE SYSTEM Comment: The adult ATP and pediatric NCEP classifications for lipids are available on the [facility] Intranet at: [email or web address] Select: Lab Policies and Procedures Select: Reference Ranges - Lipids 12/29/2006 11:0 5 AM CDT Karolina Dunbar MD CHEMISTRY ORDERABLES Edited Performing Organization Address City/[facility]/ZIP Co de Phone Number INTERFACE SYSTEM Refer to clinic/hospital department * (ABNORMAL) COMPREHENSIVE METABOLIC PANEL (12/29/2006 11:05 AM CDT) GLUCOSE 103(H) 65 - 99 mg/dL INTERFACE SYSTEM CREATININE 0.74 0.51 - 0.95 mg/dL INTERFACE SYSTEM CALCIUM 9.3 8.4 - 10.2 mg/dL INTERFACE SYSTEM ALKALINE PHOSPHATASE 45 35 - 104 U/L INTERFACE SYSTEM AST 34(H) 12 - 32 U/L INTERFACE SYSTEM ALT 41(H) 0 - 31 U/L INTERFACE SYSTEM TOTAL PROTEIN 7.4 6.3 - 8.6 g/dL INTERFACE SYSTEM ALBUMIN 4.3 3.4 - 4.8 g/dL INTERFACE SYSTEM BILIRUBIN TOTAL 0.5 0.2 - 1.0 mg/dL INTERFACE SYSTEM BILIRUBIN DIRECT 0.2 0.0 - 0.3 mg/dL INTERFACE SYSTEM BUN 19 6 - 20 mg/dL INTERFACE SYSTEM SODIUM 139 135 - 145 mmol/L INTERFACE SYSTEM POTASSIUM 3.8 3.5 - 4.9 mmol/L INTERFACE SYSTEM CHLORIDE 99 96 - 108 mmol/L INTERFACE SYSTEM CO2 29 22 - 30 mmol/L INTERFACE SYSTEM GFR, >60 >=60 mL/min/1. 7 sq meter INTERFACE SYSTEM GFR >60 >=60 mL/min/1. 7 sq meter INTERFACE SYSTEM Comment: Estimated GFR rate interpretative information for both Americans and non- Americans is available on the [facility] Intranet at: [email or web address] Select: Lab Policies and Procedures Select: Reference Ranges - GFR 12/29/2006 11:0 5 AM CDT Karolina Dunbar MD CHEMISTRY ORDERABLES Edited INTERFACE SYSTEM Refer to clinic/hospital department documented in this encounter Visit Diagnoses Diagnosis Essential hypertension, benign- Primary documented in this encounter Care Teams Chairman Of The Board Relationship Specialty Start Date End Date Mike Hawthorne DO 6812 [facility] [address] [facility] [address] [place] [address] PCP - General Internal Medicine 10/17/20 documented as of this encounter
--- OUTSIDE RECORDS SUMMARY | 2024-09-05 08:37 | XMS_ITS | Encounter Summary ---
Author Organization [employer] Address [address] [place] [address] Care Team Providers Care Ski Maker Name Role Phone Mike Hawthorne DO Primary Care Provider [phone] Encounter Details Date Type Department Care Team (Latest Contact Info) Description 07/20/2007 Outpatient Historical [facility] 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 [address] [email or web address] Echocardiogram Patient: Obdulio Briseno Study ID: CREON ADULT ECHO Gender: F : 1950 Age: 57 years Race: 1 Room: Bed: Height: 64 in ( 163 cm ) Study Date: July 20, 2007 Patient status: Outpatient Weight: 189.6 lb ( 86.18 kg ) Access. #: [id number] POC: Ordering: Arcadio Attending MD: Arcadio Admitting MD: Arcadio Indications and History: INDICATIONS: Dizziness Study Conclusions: SUMMARY: - Overall left ventricular systolic function was normal. Left ventricular ejection fraction was estimated to be 60 % The calculated LVEF was 65 %. There was no diagnostic evidence of left ventricular regional wall motion abnormalities. - There was mild aortic valvular regurgitation. - Left atrial size was normal. - Right ventricular size was normal. Right ventricular systolic function was normal. Cardiac anatomy: LEFT VENTRICLE: Left ventricular size was normal. Overall left ventricular systolic function was normal. Left ventricular ejection fraction was estimated to be 60 % The calculated LVEF was 65 %. There was no diagnostic evidence of left ventricular regional wall motion abnormalities. Left ventricular wall thickness was normal. AORTIC VALVE: There was normal aortic valve leaflet excursion. Doppler interpretation(s): Transaortic velocity was within the normal range. There was no evidence for aortic valve stenosis. There was mild aortic valvular regurgitation. AORTA: The aortic root was normal in size. MITRAL VALVE: Mitral valve structure was normal. There was normal mitral valve leaflet excursion. Doppler interpretation(s): There was trivial mitral valvular regurgitation. LEFT ATRIUM: Left atrial size was normal. RIGHT VENTRICLE: Right ventricular size was normal. Right ventricular systolic function was normal. PULMONIC VALVE: Doppler interpretation(s): The transpulmonic velocity was within the normal range. There was no pulmonic valve stenosis. There was trivial pulmonic regurgitation. TRICUSPID VALVE: Tricuspid leaflet excursion was normal. Doppler interpretation(s): There was trivial tricuspid valvular regurgitation. RIGHT ATRIUM: Right atrial size was normal. PERICARDIUM: There was no pericardial effusion. Measurement tables: 2D measurements LEFT VENTRICLE NORMAL LVOT area 3.24 cm^2 -- M-mode measurements LEFT VENTRICLE NORMAL LVID ed 51 mm -- LVID es 31 mm -- IVS ed 9 mm -- LVPWT ed 9 mm -- AORTA NORMAL AoD (root) 29 mm -- LEFT ATRIUM NORMAL LAD 30 mm -- Doppler measurements LVOT, AV, AORTA NORMAL LVOT diameter 2.03 cm -- LVOT max velocity 90 cm/sec -- LVOT VTI 23 cm -- Stroke volume (LVOT) 74 ml -- Mean AV velocity 50.9 cm/sec -- Peak AV velocity 150 cm/sec -- AV VTI 35 cm -- Mean AV gradient 3.7 mmHg -- Peak AV gradient 9 mmHg -- AV area (VTI) 2.08 cm^2 -- AV area (Vmax) 1.93 cm^2 -- MITRAL VALVE NORMAL Peak E velocity 84 cm/sec -- Peak A velocity 95 cm/sec -- MV peak E/A 0.88 -- MV deceleration time 248 msec -- Isovolumic relax time 63 msec -- MV mean gradient 1 mmHg -- Peak gradient 3 mmHg -- Pressure half-time 74 msec -- Area (PHT) 2.99 cm^2 -- Area (continuity) 2.55 cm^2 -- Transmitral VTI 29 cm -- Mitral regurgitation by PISA technique Max MR velocity 305 cm/sec -- MR VTI 130 cm -- RIGHT VENTRICLE NORMAL Tricuspid regurgitant velocity 178 cm/sec -- Estimated RV systolic pressure 23 mmHg -- RVOT, PV, PA NORMAL PV peak velocity 114 cm/sec -- PV peak gradient 5 mmHg -- Prepared and Electronically Authenticated Sang Silva MD Confirmed July 20, 2007 12:40:34 Procedure Note Provider, Historical - 07/20/2007 [address] [place], [place] [address]: [email or web address] [email or web address] Patient: Obdulio Briseno Study ID: CERON ADULT ECHO Gender: F : 1950 Age: 57 years Race: 1 Room: Bed: Height: 64 in ( 163 cm ) Study Date: July 20, 2007 Patient status: Outpatient Weight: 189.6 lb ( 86.18 kg ) Access. #: [id number] POC: Ordering: Arcadio Attending MD: Arcadio Admitting MD: Arcadio Indications and History: INDICATIONS: Dizziness Study Conclusions: SUMMARY: - Overall left ventricular systolic function was normal. Leftventricular ejection fraction was estimated to be 60 % The calculated LVEF was 65 %. There was no diagnostic evidence of left ventricular regional wall motion abnormalities. - There was mild aortic valvular regurgitation. - Left atrial size was normal. - Right ventricular size was normal. Right ventricular systolicfunction was normal. Cardiac anatomy: LEFT VENTRICLE: Left ventricular size was normal. Overall left ventricular systolic function was normal. Left ventricular ejection fraction was estimated ayanna 60 % The calculated LVEF was 65 %. There was no diagnostic evidence ofleft ventricular regional wall motion abnormalities. Left ventricular wall thickness was normal. AORTIC VALVE: There was normal aortic valve leaflet excursion. Dopplerinterpretation(s): Transaortic velocity was within the normal range. There was no evidencefor aortic valve stenosis. There was mild aortic valvular regurgitation. AORTA: The aortic root was normal in size. MITRAL VALVE: Mitral valve structure was normal. There was normal mitral valve leaflet excursion. Doppler interpretation(s): There was trivial mitral valvular regurgitation. LEFT ATRIUM: Left atrial size was normal. RIGHT VENTRICLE: Right ventricular size was normal. Right ventricular systolic functionwas normal. PULMONIC VALVE: Doppler interpretation(s): The transpulmonic velocity was within thenormal range. There was no pulmonic valve stenosis. There was trivial pulmonic regurgitation. TRICUSPID VALVE: Tricuspid leaflet excursion was normal. Doppler interpretation(s): There was trivial tricuspid valvular regurgitation. RIGHT ATRIUM: Right atrial size was normal. PERICARDIUM: There was no pericardial effusion. Measurement tables: 2D measurements LEFT VENTRICLE NORMAL LVOT area 3.24 cm^2 -- M-mode measurements LEFT VENTRICLE NORMAL LVID ed 51 mm -- LVID es 31 mm -- IVS ed 9 mm -- LVPWT ed 9 mm -- AORTA NORMAL AoD (root) 29 mm -- LEFT ATRIUM NORMAL LAD 30 mm -- Doppler measurements LVOT, AV, AORTA NORMAL LVOT diameter 2.03 cm -- LVOT max velocity 90 cm/sec -- LVOT VTI 23 cm -- Stroke volume (LVOT) 74 ml -- Mean AV velocity 50.9 cm/sec -- Peak AV velocity 150 cm/sec -- AV VTI 35 cm -- Mean AV gradient 3.7 mmHg -- Peak AV gradient 9 mmHg -- AV area (VTI) 2.08 cm^2 -- AV area (Vmax) 1.93 cm^2 -- MITRAL VALVE NORMAL Peak E velocity 84 cm/sec -- Peak A velocity 95 cm/sec -- MV peak E/A 0.88 -- MV deceleration time 248 msec -- Isovolumic relax time 63 msec -- MV mean gradient 1 mmHg -- Peak gradient 3 mmHg -- Pressure half-time 74 msec -- Area (PHT) 2.99 cm^2 -- Area (continuity) 2.55 cm^2 -- Transmitral VTI 29 cm -- Mitral regurgitation by PISA technique Max MR velocity 305 cm/sec -- MR VTI 130 cm -- RIGHT VENTRICLE NORMAL Tricuspid regurgitant velocity 178 cm/sec -- Estimated RV systolic pressure 23 mmHg -- RVOT, PV, PA NORMAL PV peak velocity 114 cm/sec -- PV peak gradient 5 mmHg -- Prepared and Electronically Authenticated Sang Silva MD Confirmed July 20, 2007 12:40:34 us Sang Silva MD ORDERABLES Final Result INTERFACE SYSTEM Refer to clinic/hospital department documented in this encounter Visit Diagnoses Diagnosis Dizziness and giddiness documented in this encounter Care Teams Ski Maker Relationship Specialty Start Date End Date Mike Hawthorne DO [address] [facility] [address] [place] [address] PCP - General Internal Medicine 10/17/20 documented as of this encounter
--- OUTSIDE RECORDS SUMMARY | 2024-09-05 08:37 | XMS_ITS | Encounter Summary ---
Author Organization [employer] Address [address] [place] [address] Care Team Providers Care Packer Dried Beef Name Role Phone Mike Hawthorne DO Primary Care Provider [phone] Encounter Details Date Type Department Care Team (Latest Contact Info) Description 07/03/2005 Outpatient Historical [facility] CARD PACKER AND CARRY OUT Daron Shrestha MD [address] [facility] [address] [place], [place] [id number] ABNORMAL CARDIOVASC STUDY NEC (Primary Dx) Social History Tobacco Use Types Packs/Day Years Used Date Smoking Tobacco: Never Assessed Comments Unknown Sex and Gender Information Value Date Recorded Sex Assigned at Female 01/24/2024 9:50 PM CDT Legal Sex Female 3:49 AM BOWLING BALL MARKER Gender Identity Female 01/24/2024 9:50 PM CDT Sexual Orientation Not on file documented as of this encounter Plan of Treatment Not on file documented as of this encounter Procedures Procedure Name Priority Date/Time Associated Diagnosis Comments PTT Routine 07/03/2005 6:33 AM BOWLING BALL MARKER PROTIME-INR Routine 07/03/2005 6:33 AM BOWLING BALL MARKER TSH Routine 07/03/2005 6:33 AM BOWLING BALL MARKER LIPID PANEL Routine 07/03/2005 6:33 AM BOWLING BALL MARKER BASIC METABOLIC PANEL Routine 07/03/2005 6:33 AM BOWLING BALL MARKER documented in this encounter Results * (ABNORMAL) TSH (07/03/2005 6:33 AM BOWLING BALL MARKER) [facility] TSH 4.46(H) 0.27 - 4.20 uU/mL INTERFACE SYSTEM 07/03/2005 6:33 AM BOWLING BALL MARKER Daron Villar MD CHEMISTRY ORDERABLES Final Resul t Performing Organization Address City/[facility] Co de Phone Number INTERFACE SYSTEM Refer to clinic/hospital department * (ABNORMAL) LIPID PANEL (07/03/2005 6:33 AM BOWLING BALL MARKER) Pathologist [facility] LIPID PANEL COMMENT See below INTERFACE SYSTEM Comment: Adult ATP III Classifications: Cholesterol (mg/dL) Triglyceride (mg/dL) Desirable <200 Normal <150 Borderline 200 - 239 Borderline High 150 - 199 High >=240 High 200 - 499 Very High >=500 HDL Cholesterol (mg/dL) LDL (mg/dL) Low (increased risk) <40 Optimal <100 High (reduced risk) >=60 Near or above optimal 100 - 129 Borderline 130 - 159 High 160 - 189 Very High >=190 LDL calculation is not accurate if Triglycerides are greater than 400 mg /dL Pediatric NCEP Classifications: Cholesterol(<20 years),(mg/dL) Triglyceride Desirable <170 Pediatric classification Borderline 170 - 199 not defined. High >=200 HDL (<5 years) LDL (mg/dL) No Reference Range Established Desirable <110 Borderline 110 - 129 High >=130 CHOLESTEROL 155 100 - 199 mg/dL INTERFACE SYSTEM TRIGLYCERIDE 114 10 - 149 mg/dL INTERFACE SYSTEM HDL 64(H) 40 - 59 mg/dL INTERFACE SYSTEM LDL CALCULATED 68 <=99 mg/dL INTERFACE SYSTEM CHOL/HDL RATIO 2.4 2.0 - 5.0 INTER FACE SYSTEM Comment:See interpretive justina a section for risk classifications. 07/03/2005 6:33 AM BOWLING BALL MARKER Daron Villar MD CHEMISTRY ORDERABLES Final Resul t Performing Organization Address City/[facility]/ZIP Co de Phone Number INTERFACE SYSTEM Refer to clinic/hospital department * (ABNORMAL) BASIC METABOLIC PANEL (07/03/2005 6:33 AM BOWLING BALL MARKER) GLUCOSE 115(H) 65 - 109 mg/dL INTERFACE SYSTEM CREATININE 0.8 0.4 - 1.2 mg/dL INTERFACE SYSTEM CALCIUM 8.9 8.6 - 10.2 mg/dL INTERFACE SYSTEM BUN 18 6 - 20 mg/dL INTERFACE SYSTEM SODIUM 139 135 - 145 mmol/L INTERFACE SYSTEM POTASSIUM 3.4(L) 3.5 - 4.9 mmol/L INTERFACE SYSTEM CHLORIDE 102 96 - 108 mmol/L INTERFACE SYSTEM CO2 27 22 - 30 mmol/L INTERFACE SYSTEM 07/03/2005 6:33 AM BOWLING BALL MARKER us Daron Villar MD CHEMISTRY ORDERABLES Final Resul t Performing Organization Address City/[facility] de Phone Number INTERFACE SYSTEM Refer to clinic/hospital department * PTT (07/03/2005 6:33 AM BOWLING BALL MARKER) PTT 26.6 24.4 - 36.4 Seconds INTERFACE SYSTEM Comment: PTT Therapeutic Range: Heparin Level PTT (seconds) <0.10 units/mL <53 0.10 - 0.30 units/mL 53 - 67 0.30 - 0.70 units/mL* 67 - 95* 0.70 - 1.00 units/mL 95 - 116 *corresponds to therapeutic range for unfractionated heparin 07/03/2005 6:33 AM BOWLING BALL MARKER us Daron Villar MD HEMATOLOGY ORDERABLES Final Resu lt Performing Organization Address [facility] Co de Phone Number INTERFACE SYSTEM Refer to clinic/hospital department * PROTIME-INR (07/03/2005 6:33 AM BOWLING BALL MARKER) PROTIME 13.7 12.7 - 15.1 Seconds INTERFACE SYSTEM INR 1.0 0.9 - 1.1 INTERFACE SYSTEM Comment: INR Therapeutic Range: Adult: 2.0 - 3.0 for pulmonary embolism or prophylaxis against venous thrombosis or systemic embolization. 2.0 - 3.0 for patients with tissue heart valves. 2.5 - 3.5 for patients with mechanical heart valves or post NE. Pediatric (12 years and under): 1.5 - 3.0 Although the target range in children is not well established , INR values of 1.5 - 3.0 are recommended for most patients. Higher values have been used in children with prosthetic cardiac valves and hereditary clotting disorders. (<3 days) therapeutic ranges have not been established. 07/03/2005 6:33 AM BOWLING BALL MARKER us Daron Villar MD HEMATOLOGY ORDERABLES Final Resu lt INTERFACE SYSTEM Refer to clinic/hospital department documented in this encounter Visit Diagnoses Diagnosis Other nonspecific abnormal cardiovascular system function study- Primary documented in this encounter Care Teams Packer Dried Beef Relationship Specialty Start Date End Date Mike Hawthorne DO [address] [facility] [address] [facility] [address] [place] [address] PCP - General Internal Medicine 10/17/20 documented as of this encounter
--- OUTSIDE RECORDS SUMMARY | 2024-09-05 08:37 | XMS_ITS | Encounter Summary ---
Author Organization [employer] Address [address] [place] [address] Care Team Providers Care Agile Business Analyst Name Role Phone Mike Hawthorne DO Primary Care Provider [phone] Encounter Details Date Type Department Care Team (Late st Contact Info) Description 12/29/2006 Outpatient Historical [facility] [address] [place], [place] [id number] Daron Villar MD [address] [place] [address] Social History Tobacco Use Types Packs/Day Years Used Date Smoking Tobacco: Never Assessed Comments Unknown Sex and Gender Information Value Date Recorded Sex Assigned at Female 01/24/2024 9:50 PM CDT Legal Sex Female 3:49 AM WIDE AREA NETWORK ADMINISTRATOR Gender Identity Female 01/24/2024 9:50 PM CDT Sexual Orientation Not on file documented as of this encounter Plan of Treatment Not on file documented as of this encounter Visit Diagnoses Not on filedocumented in this encounter Care Teams Agile Business Analyst Relationship Specialty Start Date End Date Mike Hawthorne DO [address] [facility] [address] [place] [address] PCP - General Internal Medicine 10/17/20 documented as of this encounter
--- OUTSIDE RECORDS SUMMARY | 2024-09-05 08:37 | XMS_ITS | Encounter Summary ---
Author Organization [employer] Address [address] [place] [address] Care Team Providers Care Chinese Teacher Name Role Phone Mike Hawthorne DO Primary Care Provider [phone] Encounter Details Date Type Department Care Team (Late st Contact Info) Description 08/12/2005 Outpatient Historical [facility] [address] [place], [place] [id number] Daron Villar MD [address] [place] [address] Social History Tobacco Use Types Packs/Day Years Used Date Smoking Tobacco: Never Assessed Comments Unknown Sex and Gender Information Value Date Recorded Sex Assigned at Female 01/24/2024 9:50 PM CDT Legal Sex Female 3:49 AM STEERER Gender Identity Female 01/24/2024 9:50 PM CDT Sexual Orientation Not on file documented as of this encounter Plan of Treatment Not on file documented as of this encounter Visit Diagnoses Not on filedocumented in this encounter Care Teams Chinese Teacher Relationship Specialty Start Date End Date Mike Hawthorne DO [address] [facility] [address] [place] [address] PCP - General Internal Medicine 10/17/20 documented as of this encounter
--- OUTSIDE RECORDS SUMMARY | 2024-09-05 08:37 | XMS_ITS | Encounter Summary ---
Author Organization [facility] Address [address] [place] [address] Care Team Providers Care Addresser Name Role Phone Mike Hawthorne DO Primary Care Provider [phone] Encounter Details Date Type Department Care Team (Late st Contact Info) Description 11/13/2005 Outpatient [facility] Primary Care [address] [place] [address] Karolina Dunbar MD NO ADDRESS ON FILE Social History Tobacco Use Types Packs/Day Years Used Date Smoking Tobacco: Never Assessed Comments Unknown Sex and Gender Information Value Date Recorded Sex Assigned at Female 01/24/2024 9:50 PM CDT Legal Sex Female 3:49 AM LIEUTENANT GENERAL Gender Identity Female 01/24/2024 9:50 PM CDT Sexual Orientation Not on file documented as of this encounter Plan of Treatment Not on file documented as of this encounter Visit Diagnoses Not on filedocumented in this encounter Care Teams Addresser Relationship Specialty Start Date End Date Mike Hawthorne DO [address] [facility] [address] [place] [address] PCP - General Internal Medicine 10/17/20 documented as of this encounter
--- OUTSIDE RECORDS SUMMARY | 2024-09-05 08:37 | XMS_ITS | Encounter Summary ---
Author Organization [employer] [facility] Address [address] [place] [address] Care Team Providers Care Photoflash Powder Mixer Name Role Phone Mike Hawthorne DO Primary Care Provider [phone] Encounter Details Date Type Department Care Team (Latest Contact Info) Description 05/26/2008 Outpatient Historical [facility] Karolina Dunbar MD NO ADDRESS ON FILE Pain in Joint, Lower Leg Social History Tobacco Use Types Packs/Day Years Used Date Smoking Tobacco: Never Alcohol Use Standard Drinks/Week Comments Not Asked 0 (1 standard drink = 0.6 oz pur e alcohol) Comments No Sex and Gender Information Value Date Recorded Sex Assigned at Female 01/24/2024 9:50 PM CDT Legal Sex Female 3:49 AM COMMERCIAL LOAN COORDINATOR Gender Identity Female 01/24/2024 9:50 PM CDT Sexual Orientation Not on file documented as of this encounter Plan of Treatment Not on file documented as of this encounter Visit Diagnoses Diagnosis Pain in joint, lower leg documented in this encounter Care Teams Photoflash Powder Mixer Relationship Specialty Start Date End Date Mike Hawthorne DO [address] [facility] [address] [place] [address] PCP - General Internal Medicine 10/17/20 documented as of this encounter
--- OUTSIDE RECORDS SUMMARY | 2024-09-05 08:37 | XMS_ITS | Encounter Summary ---
Author Organization [employer] [facility] Address [address] [place] [address] Care Team Providers Care Ammunition Assembly I Laborer Name Role Phone Mike Hawthorne DO Primary Care Provider [phone] Encounter Details Date Type Department Care Team (Latest Contact Info) Description 12/12/2005 Outpatient Historical HIS [facility] Drake Zheng MD [address] [place] [address] Other Screening Mammogram (Primary Dx) Social History Tobacco Use Types Packs/Day Years Used Date Smoking Tobacco: Never Assessed Comments Unknown Sex and Gender Information Value Date Recorded Sex Assigned at Female 01/24/2024 9:50 PM CDT Legal Sex Female 3:49 AM LOOM STARTER Gender Identity Female 01/24/2024 9:50 PM CDT Sexual Orientation Not on file documented as of this encounter Plan of Treatment Not on file documented as of this encounter Visit Diagnoses Diagnosis Other screening mammogram- Primary documented in this encounter Care Teams Ammunition Assembly I Laborer Relationship Specialty Start Date End Date Mike Hawthorne DO [address] [facility] [address] [place] [address] PCP - General Internal Medicine 10/17/20 documented as of this encounter
--- OUTSIDE RECORDS SUMMARY | 2024-09-05 08:37 | XMS_ITS | Encounter Summary ---
Author Organization [facility] Address [address] [place] [address] Care Team Providers Care Wares Sorter Name Role Phone Mike Hawthorne DO Primary Care Provider [phone] Encounter Details Date Type Department Care Team (Late st Contact Info) Description 04/23/2007 Outpatient Historical [facility] Primary Care [address] [place] [address] Karolina Dunbar MD NO ADDRESS ON FILE Social History Tobacco Use Types Packs/Day Years Used Date Smoking Tobacco: Never Assessed Comments Unknown Sex and Gender Information Value Date Recorded Sex Assigned at Female 01/24/2024 9:50 PM CDT Legal Sex Female 3:49 AM CASH CROP FARMER Gender Identity Female 01/24/2024 9:50 PM CDT Sexual Orientation Not on file documented as of this encounter Plan of Treatment Not on file documented as of this encounter Visit Diagnoses Not on filedocumented in this encounter Care Teams Wares Sorter Relationship Specialty Start Date End Date Mike Hawthorne DO [address] [facility] [address] [place] [address] PCP - General Internal Medicine 10/17/20 documented as of this encounter
--- OUTSIDE RECORDS SUMMARY | 2024-09-05 08:37 | XMS_ITS | Encounter Summary ---
[facility] Organization [facility] Address [address] [place] [address] Care Team Providers Care Civil Rights Attorney Name Role Phone Mike Hawthorne DO Primary Care Provider [phone] Encounter Details Date Type Department Care Team (Latest Contact Info) Description 07/08/2007 Outpatient Historical [facility] Karolina Dunbar MD NO ADDRESS ON FILE Dizziness and Giddiness Social History Tobacco Use Types Packs/Day Years Used Date Smoking Tobacco: Never Assessed Comments Unknown Sex and Gender Information Value Date Recorded Sex Assigned at Female 01/24/2024 9:50 PM CDT Legal Sex Female 3:49 AM SOCK LINER Gender Identity Female 01/24/2024 9:50 PM CDT Sexual Orientation Not on file documented as of this encounter Plan of Treatment Not on file documented as of this encounter Procedures Procedure Name Priority Date/Time Associated Diagnosis Comments MRI BRAIN W WO CONTRAST Routine 07/08/2007 11:39 AM SOCK LINER documented in this encounter Results * MRI BRAIN W WO CONTRAST (07/08/2007 11:39 AM SOCK LINER) Anatomical Region Laterality Modality Head Other 07/08/2007 11:3 9 AM SOCK LINER Narrative 07/08/2007 2:34 PM SOCK LINER [address] [place], [place] [address] Admit Date: 07/08/2007 OBDULIO BRISENO Sex: F Admit Prov: KAROLINA DUNBAR Date: 1950 Primary Care Prov: KAROLINA DUNBAR CMRN: [id number] [id number] Ordering Prov: N/A Accession Number: [id number] Interpretation MRI OF BRAIN WITHOUT AND WITH IV CONTRAST, 07/08/2007 History: Dizziness, hand weakness. Brain sequences performed demonstrates multiple periventricular and subcortical areas of T2 hyperintense signal, several of which appear to demonstrate encephalomalacia. These findings are nonspecific in nature, with differential including small vessel disease from advanced medical disease, smoking, migraines, demyelinating processes, vasculitis, etc. No lesions demonstrate abnormal enhancement, and none involve the brainstem, posterior fossa, or corpus callosum. Impression: Nonspecific white matter changes. No abnormal enhancement. . Dictated by: MARIKA GRANT 07/08/2007 12:37 Electronically signed by: MARIKA GRANT 07/08/2007 14:34 Transcribed: 07/08/2007 12:45 SMM Procedure Note Marika Grant - 07/08/[address] [address] Admit Date: 07/08/2007 OBDULIO BRISENO Sex: F Admit Prov: ARACELI KAROLINA R Date: 1950 Primary Care Prov: KAROLINA DUNBAR CMRN: [id number] [id number] [facility] Ordering Prov: N/A Interpretation MRI OF BRAIN WITHOUT AND WITH IV CONTRAST, 07/08/2007 History: Dizziness, hand weakness. Brain sequences performed demonstrates multiple periventricular and subcortical areas of T2 hyperintense signal, several of which appearto demonstrate encephalomalacia. These findings are nonspecific innature, with differential including small vessel disease from advancedmedical disease, smoking, migraines, demyelinating processes, vasculitis,etc. No lesions demonstrate abnormal enhancement, and none involve thebrainstem, posterior fossa, or corpus callosum. Impression: Nonspecific white matter changes. No abnormalenhancement. . Dictated by: MARIKA GRANT 07/08/2007 12:37 Electronically signed by: MARIKA GRANT 07/08/2007 14:34 Transcribed: 07/08/2007 12:45 SMM us Karolina Dunbar MD MR ORDERABLES Final Result documented in this encounter Visit Diagnoses Diagnosis Dizziness and giddiness documented in this encounter Care Teams Civil Rights Attorney Relationship Specialty Start Date End Date Mike Hawthorne DO [address] [facility] [address] [facility] [address] [place] [address] PCP - General Internal Medicine 10/17/20 documented as of this encounter
--- OUTSIDE RECORDS SUMMARY | 2024-09-05 08:37 | XMS_ITS | Encounter Summary ---
Author Organization [facility] Address [address] [place] [address] Care Team Providers Care Supervisor [place] Name Role Phone Mike Hawthorne DO Primary Care Provider [phone] Encounter Details Date Type Department Care Team (Late st Contact Info) Description 04/23/2007 Outpatient Historical [facility] Primary Care [address] [place] [address] Karolina Dunbar MD NO ADDRESS ON FILE Social History Tobacco Use Types Packs/Day Years Used Date Smoking Tobacco: Never Assessed Comments Unknown Sex and Gender Information Value Date Recorded Sex Assigned at Female 01/24/2024 9:50 PM CDT Legal Sex Female 3:49 AM SOFTWARE ANALYST Gender Identity Female 01/24/2024 9:50 PM CDT Sexual Orientation Not on file documented as of this encounter Plan of Treatment Not on file documented as of this encounter Visit Diagnoses Not on filedocumented in this encounter Care Teams Supervisor [place] Relationship Specialty Start Date End Date Mike Hawthorne DO [address] [facility] [address] [place] [address] PCP - General Internal Medicine 10/17/20 documented as of this encounter
--- OUTSIDE RECORDS SUMMARY | 2024-09-05 08:37 | XMS_ITS | Encounter Summary ---
Author Organization [employer] Address [address] [place] [address] Care Team Providers Care Quantitative Research Analyst Name Role Phone Mike Hawthorne DO Primary Care Provider [phone] Encounter Details Date Type Department Care Team (Latest Contact Info) Description 12/12/2005 Outpatient Historical HIS IM[facility] Karolina Dunbar MD NO ADDRESS ON FILE Special Screening for Osteoporosis (Primary Dx) Social History Tobacco Use Types Packs/Day Years Used Date Smoking Tobacco: Never Assessed Comments Unknown Sex and Gender Information Value Date Recorded Sex Assigned at Female 01/24/2024 9:50 PM CDT Legal Sex Female 3:49 AM CASTING SUPERVISOR Gender Identity Female 01/24/2024 9:50 PM CDT Sexual Orientation Not on file documented as of this encounter Plan of Treatment Not on file documented as of this encounter Visit Diagnoses Diagnosis Special screening for osteoporosis- Primary documented in this encounter Care Teams Quantitative Research Analyst Relationship Specialty Start Date End Date Mike Hawthorne DO [address] [facility] [address] [place] [address] PCP - General Internal Medicine 10/17/20 documented as of this encounter
--- OUTSIDE RECORDS SUMMARY | 2024-09-05 08:37 | XMS_ITS | Encounter Summary ---
Author Organization [facility] Address [address] [place] [address] Care Team Providers Care Forming Tube Selector Name Role Phone Mike Hawthorne DO Primary Care Provider [phone] Encounter Details Date Type Department Care Team (Late st Contact Info) Description 12/12/2005 Outpatient Historical [facility] RESEARCH NURSE PRACTITIONER - [address] [address] Drake Zheng MD [address] [place] [address] Social History Tobacco Use Types Packs/Day Years Used Date Smoking Tobacco: Never Assessed Comments Unknown Sex and Gender Information Value Date Recorded Sex Assigned at Female 01/24/2024 9:50 PM CDT Legal Sex Female 3:49 AM MOBILE LAB TECHNICIAN Gender Identity Female 01/24/2024 9:50 PM CDT Sexual Orientation Not on file documented as of this encounter Plan of Treatment Not on file documented as of this encounter Visit Diagnoses Not on filedocumented in this encounter Care Teams Forming Tube Selector Relationship Specialty Start Date End Date Mike Hawthorne DO [address] [facility] [address] [place] [address] PCP - General Internal Medicine 10/17/20 documented as of this encounter
--- OUTSIDE RECORDS SUMMARY | 2024-09-05 08:37 | XMS_ITS | Clinical Summary ---
Author Organization [facility] [employer] Address [address] [facility] [place] [address] Care Team Providers Care 411 Directory Assistance Operator Name Role Phone Ervin Macdonald MD Primary Care Provider [phone] Source Comments [facility] [employer],non-owned Affiliates and Associated Physician Practices is amultiple site organization consisting of ambulatory clinics and hospital sitesin [place], [place], [place] and [place]. This disclosure is being madepursuant to the Care Everywhere program and may not contain all information available regarding this patient. Last updated 18.[facility] [employer] Allergies No known active allergies Medications * Be aware that medications may not be up to date on this document. Alwaysverify current medications with the patient. ASPIRIN 81 PO Take 81 mg by mouth Active atenolol-chlorthal idone (TENORETIC 50) 50-25 MG tablet TAKE ONE TABLET BY MOUTH ONCE DAILY. 7 Active estradiol (ESTRACE) 0.5 MG tablet TAKE ONE TABLET BY MOUTH ONCE DAILY. 6 Active lisinopril (PRINIVIL;ZESTRIL) 5 MG tablet Take 5 mg by mouth 7 Active solifenacin (VESICARE) 10 MG tablet Take 10 mg by mouth once daily Active potassium chloride ER (MICRO-K) 10 MEQ capsule Take 10 mEq by mouth daily with breakfast Active atorvastatin (LIPITOR) 10 MG tablet Take 10 mg by mouth at bedtime Active pantoprazole EC (PROTONIX) 40 MG tablet Take 40 mg by mouth once daily Active mirabegron ER 24hr (MYRBETRIQ) 25 MG tablet Take 25 mg by mouth once daily Active escitalopram (LEXAPRO) 10 MG tablet Take 10 mg by mouth once daily Active magnesium oxide (MAG-OX) 400 MG tablet Take 400 mg by mouth once daily Active vitamin D3 (CHOLECALCIFEROL) 25 MCG (1000 UNITS) tablet Take 1,000 Units by mouth once daily Active calcium polycarbophil (FIBERCON) 625 MG tablet Take by mouth at bedtime Active melatonin 3 MG tablet Take 3 mg by mouth at bedtime Active docusate sodium (COLACE) 50 MG capsule Take 50 mg by mouth once daily Active Sennosides (SENOKOT PO) Active Immunizations Immunization Administration Dates Next Due INFLUENZA VACCINE, HIGH-DOSE , QUADR. 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 Gender Identity Not on file Sexual Orientation Not on file Last Filed Vital Signs Vital Sign Reading Time Taken Comments Blood Pressure 124/98 10/09/2021 12:58 PM CDT Pulse 58 10/09/2021 12:58 PM CDT Temperature 37.7 C (99.9 F) 04/16/2017 2:23 PM BEATER BOSS Respiratory Rate 18 10/09/2021 12:58 PM CDT Oxygen Saturation 95% 10/09/2021 12:58 PM CDT Inhaled Oxygen Concentration - - Weight 90.7 kg (200 lb) 04/16/2017 2:23 PM BEATER BOSS Height 162.6 cm (5' 4 ) 04/16/2017 2:23 PM BEATER BOSS Body Mass Index 34.33 04/16/2017 2:23 PM BEATER BOSS Plan of Treatment Health Maintenance Due Date Last Done Comments BONE DENSITY TESTING 1950 HEPATITIS C SCREENING 06/11/1966 DTAP/TDAP/TD VACCINES (1 - Tdap) 1967 PNEUMOCOCCAL VACCINE 50+ (1 of 1 - PCV) 1998 ZOSTER VACCINE (1 of 2) 1998 SCREENING FOR DIABETES 04/16/2017 Respiratory Syncytial Virus (RSV) Vaccine Pt: or over 60 yrs (1 - 1-dose 75+ series) 2023 COVID-19 VACCINE (2023- season) 2024 DEPRESSION SCREENING 05/04/2024 MEDICARE AWV CALENDAR YEAR 2024 INFLUENZA VACCINE (Season Ended) 2025 01/28/2018, 03/05/2017, 04/05/2016, Additional history exists HEPATITIS B VACCINE Aged Out No longe r eligible based on patient's age to complete this topic HIB VACCINE Aged Out No longer eligi ble based on patient's age to complete this topic HPV VACCINE Aged Out No longer eligi ble based on patient's age to complete this topic MENINGOCOCCAL (Group B) VACCINE SHARED DECISION-MAKING Aged Out No longer eligible based on patient's age to complete this topic MENINGOCOCCAL GROUPS A/C/Y/W VACCINE Aged Out No longer eligible based on patient's age to complete this topic Insurance [facility] MANAGED MEDICARE ADV [facility] MANAGED MEDICARE ADV Member Subscriber Plan / Payer (Ef fective 2021-Present) Name:Obdulio Briseno Relation to Subscriber:Self Name:KOPELOBDULIO Payer ID:[id number] (NAIC) Type:Medicare-Managed Care Address: [address] MANAGED MEDICARE ADV Member Subscriber Plan / Payer (Ef fective for All Dates) Name:Obdulio Briseno Relation to Subscriber:Self Name:OBDULIO BRISENO Payer ID:[id number] (NAIC) Type:Medicare-Managed Care Address: [address] Care Teams 411 Directory Assistance Operator Relationship Specialty Start Date End Date Ervin Macdonadl MD PCP - General Internal Medicine 04/05/16
--- OUTSIDE RECORDS SUMMARY | 2024-09-05 08:37 | XMS_ITS | Encounter Summary ---
Author Organization [email or web address] Address [address] [place] [address] Care Team Providers Care Diving Instructor Name Role Phone Mike Hawthorne DO Primary Care Provider [phone] Encounter Details Date Type Department Care Team (Late st Contact Info) Description 11/13/2005 Outpatient Historical [facility] 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
--- OUTSIDE RECORDS SUMMARY | 2024-09-05 08:37 | XMS_ITS | Encounter Summary ---
Author Organization [facility] Address [address] [place] [address] Care Team Providers Care Electric Container Tester Name Role Phone Mike Hawthorne DO Primary Care Provider [phone] Encounter Details Date Type Department Care Team (Latest Contact Info) Description 02/10/2007 Outpatient Historical [facility] Drake Zheng MD [address] [place] [address] Other Screening Mammogram (Primary Dx) Social History Tobacco Use Types Packs/Day Years Used Date Smoking Tobacco: Never Assessed Comments Unknown Sex and Gender Information Value Date Recorded Sex Assigned at Female 01/24/2024 9:50 PM CDT 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
== END 2024-09-05 08:23 | disposition home or self-care (01) ==
LOC: ANHIMG 08:24
PROVIDERS: PCP Student in an Organized Health Care Education/Training Program; Visit Provider Student in an Organized Health Care Education/Training Program
DX: Z12.31 Encounter for screening mammogram for malignant neoplasm of breast (principal); Z78.0 Asymptomatic menopausal state
CPT/HCPCS: 77063; 77067; 77080